=== PATIENT | female | born 1945 | race Caucasian/White ===

== ENCOUNTER 2016-07-01 22:40 | Emergency (ER) | payer MEDICARE, BC ==
[~2016-07-01 22:40] MED LIST: /HCTZ25TA PO; AMLO10TA2 PO; ASPI1TAB PO; ASPI325T PO; ASPI81TA85 PO; CARV25TA PO; COZA100T2 PO; ELIQ5TAB PO; HYZA100T2 PO; LOPR50TA PO; LOSA100T PO; PERCOCET PO; SIMV40TA2 PO; SPIR25TA2 PO; TRAM50TA2 PO; TYLE325T5 PO
[2016-07-01] MEDS ORDERED: MORPHINE 4 MG/ML 1ML SYRINGE As Ordered ONE (23:26)
[2016-07-02 00:08] LABS: BASO # 0.1 K/mm3 (0.0-0.2); EOS # 0.3 K/mm3 (0.0-0.50); EOS % 2.7 % (0.0-3.0); LARGE UNSTAINED CELL # 0.2 K/mm3 (0.0-0.4); LARGE UNSTAINED CELL % 1.2 % (0.0-4.0); LYMPH # 1.7 K/mm3 (1.5-4.5); LYMPH % 12.5 % (24.0-44.0); MEAN CORPUSCULAR HEMOGLOBIN 28.8 pg (27.0-33.0); MEAN CORPUSCULAR HGB CONC 31.2 g/dl (32.0-36.5); MEAN CORPUSCULAR VOLUME 92.3 fl (80.0-96.0); MONO # 0.6 K/mm3 (0.0-0.8); MONO % 4.9 % (0.0-5.0); NEUTROPHILS # 9.4 K/mm3 (1.8-7.7); NEUTROPHILS % 77.6 % (36.0-66.0); PLATELET COUNT, AUTOMATED 325 k/mm3 (150-450); RED CELL DISTRIBUTION WIDTH 14.4 % (11.5-14.5); WHITE BLOOD COUNT 12.1 K/mm3 (4.0-10.0)
[2016-07-02 00:16] LABS: INR 1.17
--- NOTE | 2016-07-02 00:20 | REPUSA ---
CLINICAL HISTORY: Edema. COMMENTS: Real time sonography with duplex doppler of the left lower extremity was performed with attention to the major deep venous structures. Evaluation reveals the left common femoral, superficial femoral and popliteal veins to be completely compressible without intraluminal thrombus. There is normal spontaneous phasic flow and augmentation. The greater saphenous/common femoral vein junction is patent. There is an intramuscular hematoma within the left calf muscles measuring 8.9x4.4x5.9 cm. IMPRESSION: No evidence of DVT in left lower extremity. Intramuscular hematoma of the left calf muscles. Thank you for your kind referral of this patient.
[2016-07-02 00:24] LABS: CALCIUM LEVEL 10.6 MG/DL (8.8-10.2); CREATININE FOR GFR 1.15 MG/DL (0.55-1.02); GLOMERULAR FILTRATION RATE 49.8 (>45); POTASSIUM SERUM 4.3 MEQ/L (3.5-5.1)
--- NOTE | 2016-07-02 01:00 | EDDOCDS ---
Nurse's Notes [facility] Name: Aleyda Cheema Age: 71 yrs Sex: Female : 1945 Arrival Date: 07/01/2016 Time: 22:40 Bed 12 Private MD: Demi Martinez Diagnosis: Edema, unspecified-Hematoma of lower leg Presentation: 07/01 22:49 Presenting complaint: Patient states: "My left leg has swollen to almost twice it's mb9 size and it hurts real bad". pt reports that she first noticed it two days ago. Adult Sepsis Screening: The patient does not have new or worsening altered mentation. Patient's respiratory rate is less than 22. Systolic blood pressure is greater than 100. Patient has a qSOFA score of 0- Negative Sepsis Screen. Suicide/Homicide risk assessment- the patient denies having any suicidal and/or homicidal ideations and does not present with any other emotional, behavioral or mental health complaints. Status: Patient is not a guest services ambassador or dependent. Transition of care: patient was not received from another setting of care. 22:49 Acuity: AROLDO Level 3 mb9 22:49 Method Of Arrival: Walkin/Carried/Asstd mb9 Triage Assessment: 22:53 General: Appears in no apparent distress, Behavior is appropriate for age, cooperative. mb9 Pain: Location: left calf Pain currently is 9 out of 10 on a pain scale. Cardiovascular: pt's left lower extremity appears swollen compared to right. . Historical: - Allergies: No known drug Allergies; - Home Meds: 1. carvedilol 6.25 mg oral tab 1 tab 2 times per day 2. simvastatin 40 mg Oral tab 1 tab once daily 3. spironolactone 25 mg Oral tab 0.5 tab once daily 4. oxybutynin chloride 10 mg Oral tr24 1 tab once daily 5. Eliquis 5 mg oral tab 1 tab 2 times per day 6. losartan 25 mg oral tab 1 tab once daily 7. Dexilant 60 mg oral CpDB 1 cap once daily - PMHx: Atrial Fib; GERD; Hypertension; - PSHx: Cholecystectomy; back surgery x2; trigger finger; Knee Arthroplasty, Left; - Social history: Smoking status: Patient states was never smoker of tobacco. No barriers to communication noted, The patient speaks fluent [place]ican. - Family history: Not pertinent. - : The pt / caregiver states he / she is on anticoagulants: Eliquis Home medication list is obtained from the patient. - Exposure Risk Screening:: None identified. Screenin:22 Screening information is obtained from the patient. Fall risk: No risks identified. kas2 Assistance ADL's: requires no assistance with activities of daily living. Abuse/DV Screen: The patient / caregiver reports he/she is: not in a situation that causes fear, pain or injury. Nutritional screening: No deficits noted. Advance Directives: Currently, there is no health care proxy. There is no active DNR order. There is no living will. There is no Power of Medical Record Librarian. home support is adequate. Assessment: 23:18 General: Appears in no apparent distress, uncomfortable, well nourished, well groomed, kas2 Behavior is appropriate for age, cooperative. Pain: Location: left leg and left calf Pain currently is 9 out of 10 on a pain scale. Pain radiates to left leg and left calf Quality of pain is described as sharp, stabbing, Pain began 2-3 days ago. Neurological: Level of Consciousness is awake, alert, Oriented to person, place, time. Cardiovascular: Capillary refill < 3 seconds Heart tones S1 S2 present Rhythm is atrial fibrillation Chest pain is denied. Respiratory: Airway is patent Respiratory effort is even, unlabored, Respiratory pattern is regular, symmetrical, Breath sounds are clear bilaterally. Derm: Skin is intact, Skin is dry, Skin is pink, warm & dry. Skin temperature is warm. Musculoskeletal: Circulation, motion, and sensation intact Capillary refill < 3 seconds Range of motion limited in left leg and left calf Swelling present in left leg and left calf. Injury Description: No known injury. 23:20 General: Patient gone to [place] via stretcher with tech.. kas2 23:55 General: Patient back from [place] via stretcher with tech. Resettled patient in bed.. kas2 Vital Signs: 22:42 BP 155 / 101; Pulse 93; Resp 18 S; Temp 97.1(O); Pulse Ox 95% on R/A; Weight 92.99 kg dd6 (R); Height 5 ft. 5 in. (165.10 cm) (R); 23:17 BP 154 / 89 (auto/); kas2 23:17 Pulse Ox 93% ; kas2 23:56 BP 133 / 78 (auto/); kas2 23:57 Pulse Ox 94% ; kas2 07/02 00:57 BP 138 / 63; Pulse 75; Resp 18; Temp 98.2; Pulse Ox 99% ; Pain 0/10; kas2 07/01 22:42 Body Mass Index 34.11 (92.99 kg, 165.10 cm) dd6 Vitals: 07/01 22:42 Log In Time: July 01, 2016 at 22:40. dd6 ED Course: 22:41 Patient visited by Cj Sellers PCA. dd6 22:41 Patient moved to Waiting dd6 22:42 Demi Martinez MD is Private Physician. dd6 22:43 Patient moved to Pre RCE dd6 22:50 Triage Initiated mb9 23:07 Zahraa Johnson RN is Primary Nurse. sls1 23:07 Patient moved to 12 sls1 23:16 Abilio Monaco MD is Attending Physician. br1 23:21 Patient visited by Abilio Monaco MD. br1 23:22 Patient visited by Zahraa Johnson RN. kas2 23:22 code number stamper on. Pulse ox on. NIBP on. kas2 23:26 Patient moved to Ultrasound dmg 07/02 00:02 [facility] Payment Agreement was scanned into [employer] (T/A) and attached to record. pm4 00:02 Patient moved to 12 tmb 00:09 Inserted saline lock: 20 gauge in right antecubital area and blood collected. The kas2 patient tolerated the procedure well. No procedures done that require assistance. 00:10 Patient visited by Zahraa Johnson RN. kas2 00:36 Demi Martinez MD is Referral Physician. br1 00:57 Ultrasound LE Unilateral R/O DVT Returned. EDMS 00:59 Patient visited by Zahraa Johnson RN. kas2 00:59 The patient / caregiver is instructed regarding the plan of care and ED course. [facility] Administered Medications: 00:09 Drug: morphine 4 mg [morphine 4 mg/mL intravenous cartridge (1 mL)] Route: IVP; Site: [facility] right antecubital; Order Results: Lab Order: CBC with Diff; SPEC'M 07/01/16 23:57 Test: WHITE BLOOD COUNT; Value: 12.1; Range: 4.0-10.0; Abnormal: Above high normal; Units: K/mm3; Status: F Test: RED BLOOD COUNT; Value: 4.69; Range: 4.00-5.40; Units: M/mm3; Status: F Test: HEMOGLOBIN; Value: 13.5; Range: 12.0-16.0; Units: g/dl; Status: F Test: HEMATOCRIT; Value: 43.3; Range: 36.0-47.0; Units: %; Status: F Test: MEAN CORPUSCULAR VOLUME; Value: 92.3; Range: 80.0-96.0; Units: fl; Status: F Test: MEAN CORPUSCULAR HEMOGLOBIN; Value: 28.8; Range: 27.0-33.0; Units: pg; Status: F Test: MEAN CORPUSCULAR HGB CONC; Value: 31.2; Range: 32.0-36.5; Abnormal: Below low normal; Units: g/dl; Status: F Test: RED CELL DISTRIBUTION WIDTH; Value: 14.4; Range: 11.5-14.5; Units: %; Status: F Test: PLATELET COUNT, AUTOMATED; Value: 325; Range: 150-450; Units: k/mm3; Status: F Test: NEUTROPHILS %; Value: 77.6; Range: 36.0-66.0; Abnormal: Above high normal; Units: %; Status: F Test: LYMPH %; Value: 12.5; Range: 24.0-44.0; Abnormal: Below low normal; Units: %; Status: F Test: MONO %; Value: 4.9; Range: 0.0-5.0; Units: %; Status: F Test: EOS %; Value: 2.7; Range: 0.0-3.0; Units: %; Status: F Test: BASO %; Value: 1.0; Range: 0.0-1.0; Units: %; Status: F Test: LARGE UNSTAINED CELL %; Value: 1.2; Range: 0.0-4.0; Units: %; Status: F Test: NEUTROPHILS #; Value: 9.4; Range: 1.8-7.7; Abnormal: Above high normal; Units: K/mm3; Status: F Test: LYMPH #; Value: 1.7; Range: 1.5-4.5; Units: K/mm3; Status: F Test: MONO #; Value: 0.6; Range: 0.0-0.8; Units: K/mm3; Status: F Test: EOS #; Value: 0.3; Range: 0.0-0.50; Units: K/mm3; Status: F Test: BASO #; Value: 0.1; Range: 0.0-0.2; Units: K/mm3; Status: F Test: LARGE UNSTAINED CELL #; Value: 0.2; Range: 0.0-0.4; Units: K/mm3; Status: F Lab Order: BMP; SPEC'M 07/01/16 23:57 Test: GLUCOSE, FASTING; Value: 106; Range: 80-110; Units: MG/DL; Status: F Test: BLOOD UREA NITROGEN; Value: 33; Range: 7-18; Abnormal: Above high normal; Units: MG/DL; Status: F Test: CREATININE FOR GFR; Value: 1.15; Range: 0.55-1.02; Abnormal: Above high normal; Units: MG/DL; Status: F Test: GLOMERULAR FILTRATION RATE; Value: 49.8; Range: >45; Status: F Test: SODIUM LEVEL; Value: 139; Range: 136-145; Units: MEQ/L; Status: F Test: POTASSIUM SERUM; Value: 4.3; Range: 3.5-5.1; Units: MEQ/L; Status: F Test: CHLORIDE LEVEL; Value: 105; Range: 98-107; Units: MEQ/L; Status: F Test: CARBON DIOXIDE LEVEL; Value: 26; Range: 21-32; Units: MEQ/L; Status: F Test: ANION GAP; Value: 8; Range: 8-16; Units: MEQ/L; Status: F Test: CALCIUM LEVEL; Value: 10.6; Range: 8.8-10.2; Abnormal: Above high normal; Units: MG/DL; Status: F Test Note: ; Units are mL/min/1.73 m2 Chronic Kidney Disease Staging per NKF: Stage I & II GFR >=60 Normal to Mildly Decreased Stage III GFR 30-59 Moderately Decreased Stage IV GFR 15-29 Severely Decreased Stage V GFR <15 Very Little GFR Left ESRD GFR <15 on [place] [place] [place] Lab Order: PT/INR; SPEC'M 07/01/16 23:58 Test: PROTHROMBIN TIME; Value: 15.0; Range: 12.3-14.5; Abnormal: Above high normal; Units: SECONDS; Status: F Test: INR; Value: 1.17; Status: F Test Note: ; THERAPUTIC HUMAN INR VALUES INDICATIONS NORMAL RANGES PROPHYLAXIS/TREATMENT OF: VENOUS THROMBOSIS 2.0-3.0 PULMONARY EMBOLISM 2.0-3.0 PREVENTION OF SYSTEMIC EMBOLISM FROM: TISSUE HEART VALVES 2.0-3.0 ACUTE MYOCARDIAL INFARCTION 2.0-3.0 VALVULAR HEART DISEASE 2.0-3.0 ATRIAL FIBRILLATION 2.0-3.0 MECHANICAL VALVES(HIGH RISK) 2.5-3.5 RECURRENT MYOCARDIAL INFARCTION 2.5-3.5 Lab Order: PTT; SPEC'M 07/01/16 23:58 Test: PARTIAL THROMBOPLASTIN TIME; Value: 31.9; Range: 26.6-37.1; Units: SECONDS; Status: F Radiology Order: Ultrasound LE Unilateral R/O DVT Test: Ultrasound LE Unilateral R/O DVT REASON FOR EXAMINATION: Deformity/Swelling; ; CLINICAL HISTORY: Edema.; COMMENTS:; Real time sonography with duplex doppler of the left lower extremity was performed with attention to; the major deep venous structures.; Evaluation reveals the left common femoral, superficial femoral and popliteal veins to be completely; compressible without intraluminal thrombus. There is normal spontaneous phasic flow and augmentation.; The greater saphenous/common femoral vein junction is patent.; There is an intramuscular hematoma within the left calf muscles measuring 8.9x4.4x5.9 cm.; IMPRESSION:; No evidence of DVT in left lower extremity.; Intramuscular hematoma of the left calf muscles.; Thank you for your kind referral of this patient.; ; Outcome: 00:37 Discharge ordered by Provider. br1 00:59 Discharge Assessment: patient administered narcotics - yes. Pt provided with safe kas2 discharge. The following High Risk Discharge criteria are identified: None. Discharged to home via wheelchair, with significant other. Condition: good Condition: stable Condition: improved. Ultrasound Study completed. Property :Personal belongings accompany Pt. 00:59 Patient left the ED. kas2 Signatures: Dispatcher [employer] EDSadie Mata Brian, MD MD br1 Cj Sellers, [place] PHOTOGRAPHER [place] PHOTOGRAPHER dd6 Stefany Oviedo RN RN sls1 Fernando Montes Michael, RN RN mb9 Zahraa JohnsonRN RN kas2 Stanley King, Reg Reg pm4 [place]
--- NOTE | 2016-07-02 01:00 | EDDOCDS ---
Physician Documentation [facility] Name: Aleyda Cheema Age: 71 yrs Sex: Female : 1945 Arrival Date: 07/01/2016 Time: 22:40 Bed 12 Private MD: Demi Martinez Disposition: 07/02/16 00:37 Discharged to Home/Self Care. Impression: Edema, unspecified - Hematoma of lower leg. - Condition is Stable. - Discharge Instructions: Edema, Hematoma. - Prescriptions for Percocet 5- 325 mg Oral Tablet - take 1 tablet by ORAL route every 6 hours As needed MDD: 4 tabs; 10 tablet. - Medication Reconciliation, Local Pharmacy Hours form. - Follow up: Demi Martinez MD; When: 1 - 2 days; Reason: Recheck today's complaints. - Problem is new. - Symptoms are unchanged. - Notes: You were seen in the ED for swelling of the left low leg. Bloodwork along with Xray showed no acute findings. Ultrasound showed a hematoma in the leg but no blood clots. You may return home. Rest the leg, use compression stockings, and keep the leg elevated. Call your doctor in the morning to arrange recheck of the leg within 1-2 days and to discuss whether or not you will need to hold your Eliquis because of the hematoma. Return to the ED for any worsening pain, swelling, sensation loss in the leg, cold or blue foot or any other concerns. Historical: - Allergies: No known drug Allergies; - Home Meds: 1. carvedilol 6.25 mg oral tab 1 tab 2 times per day 2. simvastatin 40 mg Oral tab 1 tab once daily 3. spironolactone 25 mg Oral tab 0.5 tab once daily 4. oxybutynin chloride 10 mg Oral tr24 1 tab once daily 5. Eliquis 5 mg oral tab 1 tab 2 times per day 6. losartan 25 mg oral tab 1 tab once daily 7. Dexilant 60 mg oral CpDB 1 cap once daily - PMHx: Atrial Fib; GERD; Hypertension; - PSHx: Cholecystectomy; back surgery x2; trigger finger; Knee Arthroplasty, Left; - Social history: Smoking status: Patient states was never smoker of tobacco. No barriers to communication noted, The patient speaks fluent Albanian. - Family history: Not pertinent. - : The pt / caregiver states he / she is on anticoagulants: Eliquis Home medication list is obtained from the patient. - Exposure Risk Screening:: None identified. Vital Signs: 07/01 22:42 BP 155 / 101; Pulse 93; Resp 18 S; Temp 97.1(O); Pulse Ox 95% on R/A; Weight 92.99 kg / dd6 205.01 lbs (R); Height 5 ft. 5 in. (165.10 cm) (R); 23:17 BP 154 / 89 (auto/); kas2 23:17 Pulse Ox 93% ; kas2 23:56 BP 133 / 78 (auto/); kas2 23:57 Pulse Ox 94% ; kas2 07/02 00:57 BP 138 / 63; Pulse 75; Resp 18; Temp 98.2; Pulse Ox 99% ; Pain 0/10; kas2 07/01 22:42 Body Mass Index 34.11 (92.99 kg, 165.10 cm) dd6 MDM: 07/01 23:22 IV Saline Lock ordered. br1 23:22 morphine 4 mg IVP once ordered. br1 23:22 Recheck B/P ordered. br1 23:23 CBC with Diff Ordered. EDMS 23:23 BMP Ordered. EDMS 23:23 PT/INR Ordered. EDMS 23:23 PTT Ordered. EDMS 23:24 Tibia/Fibula Ordered. EDMS 23:24 Ultrasound LE Unilateral R/O DVT Ordered. EDMS 07/02 00:01 Financial registration complete. pm4 00:02 [facility] Payment Agreement was scanned into [employer] and attached to record. pm4 00:21 CBC with Diff Reviewed. br1 00:21 PT/INR Reviewed. br1 00:21 PTT Reviewed. br1 00:28 BMP Reviewed. cc10 Administered Medications: 00:09 Drug: morphine 4 mg [morphine 4 mg/mL intravenous cartridge (1 mL)] Route: IVP; Site: [facility] right antecubital; Signatures: Dispatcher [employer] EDMS Abilio Monaco MD MD br1 Mayito Swain PA-C PAKelly cc10 Ang Dao RN RN mb9 Zahraa Johnson RN RN kas2 Stanley King, Reg Reg pm4 The chart was reviewed and I authenticate all verbal orders and agree with the evaluation and treatment provided.Attachments: 00:02 [facility] Payment Agreement pm4 MTDD
--- NOTE | 2016-07-02 08:29 | REP ---
LEFT TIBIA/FIBULA SERIES: Three views. HISTORY: Trauma. FINDINGS: There is osteoarthritic narrowing and spur formation at the ankle and knee joints. 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 No fracture or subluxation is seen. IMPRESSION: No fracture noted. Signed by Allan Macias MD 07/02/2016 09:40 A
--- NOTE | 2016-07-04 02:00 | EDDOCDS ---
Nurse's Notes [facility] Name: Aleyda Cheema Age: 71 yrs Sex: Female : 1945 Arrival Date: 07/01/2016 Time: 22:40 Bed 12 Private MD: Demi Martinez Diagnosis: Edema, unspecified-Hematoma of lower leg Presentation: 07/01 22:49 Presenting complaint: Patient states: "My left leg has swollen to almost twice it's mb9 size and it hurts real bad". pt reports that she first noticed it two days ago. Adult Sepsis Screening: The patient does not have new or worsening altered mentation. Patient's respiratory rate is less than 22. Systolic blood pressure is greater than 100. Patient has a qSOFA score of 0- Negative Sepsis Screen. Suicide/Homicide risk assessment- the patient denies having any suicidal and/or homicidal ideations and does not present with any other emotional, behavioral or mental health complaints. Status: Patient is not a children's service supervisor or dependent. Transition of care: patient was not received from another setting of care. 22:49 Acuity: AROLDO Level 3 mb9 22:49 Method Of Arrival: Walkin/Carried/Asstd mb9 Triage Assessment: 22:53 General: Appears in no apparent distress, Behavior is appropriate for age, cooperative. mb9 Pain: Location: left calf Pain currently is 9 out of 10 on a pain scale. Cardiovascular: pt's left lower extremity appears swollen compared to right. . Historical: - Allergies: No known drug Allergies; - Home Meds: 1. carvedilol 6.25 mg oral tab 1 tab 2 times per day 2. simvastatin 40 mg Oral tab 1 tab once daily 3. spironolactone 25 mg Oral tab 0.5 tab once daily 4. oxybutynin chloride 10 mg Oral tr24 1 tab once daily 5. Eliquis 5 mg oral tab 1 tab 2 times per day 6. losartan 25 mg oral tab 1 tab once daily 7. Dexilant 60 mg oral CpDB 1 cap once daily - PMHx: Atrial Fib; GERD; Hypertension; - PSHx: Cholecystectomy; back surgery x2; trigger finger; Knee Arthroplasty, Left; - Social history: Smoking status: Patient states was never smoker of tobacco. No barriers to communication noted, The patient speaks fluent Marshallese. - Family history: Not pertinent. - : The pt / caregiver states he / she is on anticoagulants: Eliquis Home medication list is obtained from the patient. - Exposure Risk Screening:: None identified. Screenin:22 Screening information is obtained from the patient. Fall risk: No risks identified. kas2 Assistance ADL's: requires no assistance with activities of daily living. Abuse/DV Screen: The patient / caregiver reports he/she is: not in a situation that causes fear, pain or injury. Nutritional screening: No deficits noted. Advance Directives: Currently, there is no health care proxy. There is no active DNR order. There is no living will. There is no Power of Biomedical Equipment Specialist. home support is adequate. Assessment: 23:18 General: Appears in no apparent distress, uncomfortable, well nourished, well groomed, kas2 Behavior is appropriate for age, cooperative. Pain: Location: left leg and left calf Pain currently is 9 out of 10 on a pain scale. Pain radiates to left leg and left calf Quality of pain is described as sharp, stabbing, Pain began 2-3 days ago. Neurological: Level of Consciousness is awake, alert, Oriented to person, place, time. Cardiovascular: Capillary refill < 3 seconds Heart tones S1 S2 present Rhythm is atrial fibrillation Chest pain is denied. Respiratory: Airway is patent Respiratory effort is even, unlabored, Respiratory pattern is regular, symmetrical, Breath sounds are clear bilaterally. Derm: Skin is intact, Skin is dry, Skin is pink, warm & dry. Skin temperature is warm. Musculoskeletal: Circulation, motion, and sensation intact Capillary refill < 3 seconds Range of motion limited in left leg and left calf Swelling present in left leg and left calf. Injury Description: No known injury. 23:20 General: Patient gone to [place] via stretcher with tech.. kas2 23:55 General: Patient back from [place] via stretcher with tech. Resettled patient in bed.. kas2 Vital Signs: 22:42 BP 155 / 101; Pulse 93; Resp 18 S; Temp 97.1(O); Pulse Ox 95% on R/A; Weight 92.99 kg dd6 (R); Height 5 ft. 5 in. (165.10 cm) (R); 23:17 BP 154 / 89 (auto/); kas2 23:17 Pulse Ox 93% ; kas2 23:56 BP 133 / 78 (auto/); kas2 23:57 Pulse Ox 94% ; kas2 07/02 00:57 BP 138 / 63; Pulse 75; Resp 18; Temp 98.2; Pulse Ox 99% ; Pain 0/10; kas2 07/01 22:42 Body Mass Index 34.11 (92.99 kg, 165.10 cm) dd6 Vitals: 07/01 22:42 Log In Time: July 01, 2016 at 22:40. dd6 ED Course: 22:41 Patient visited by Cj Sellers PCA. dd6 22:41 Patient moved to Waiting dd6 22:42 Demi Martinez MD is Private Physician. dd6 22:43 Patient moved to Pre RCE dd6 22:50 Triage Initiated mb9 23:07 Zahraa JohnsonRN is Primary Nurse. sls1 23:07 Patient moved to 12 sls1 23:16 Abilio Monaco MD is Attending Physician. br1 23:21 Patient visited by Abilio Monaco MD. br1 23:22 Patient visited by Zahraa Johnson RN. kas2 23:22 monitor technician on. Pulse ox on. NIBP on. kas2 23:26 Patient moved to Ultrasound dmg 07/02 00:02 [facility] Payment Agreement was scanned into [employer] and attached to record. pm4 00:02 Patient moved to 12 tmb 00:09 Inserted saline lock: 20 gauge in right antecubital area and blood collected. The kas2 patient tolerated the procedure well. No procedures done that require assistance. 00:10 Patient visited by Zahraa Johnson RN. kas2 00:36 Demi Martinez MD is Referral Physician. br1 00:57 Ultrasound LE Unilateral R/O DVT Returned. EDMS 00:59 Patient visited by Zahraa Johnson RN. kas2 00:59 The patient / caregiver is instructed regarding the plan of care and ED course. kas2 08:43 Tibia/Fibula Returned. EDMS 10:40 T-Sheet-- Draft Copy was scanned into [employer] and attached to record. gb 10:40 Radiology Report was scanned into [employer] and attached to record. gb Administered Medications: 00:09 Drug: morphine 4 mg [morphine 4 mg/mL intravenous cartridge (1 mL)] Route: IVP; Site: [facility] right antecubital; Order Results: Lab Order: CBC with Diff; SPEC'M 07/01/16 23:57 Test: WHITE BLOOD COUNT; Value: 12.1; Range: 4.0-10.0; Abnormal: Above high normal; Units: K/mm3; Status: F Test: RED BLOOD COUNT; Value: 4.69; Range: 4.00-5.40; Units: M/mm3; Status: F Test: HEMOGLOBIN; Value: 13.5; Range: 12.0-16.0; Units: g/dl; Status: F Test: HEMATOCRIT; Value: 43.3; Range: 36.0-47.0; Units: %; Status: F Test: MEAN CORPUSCULAR VOLUME; Value: 92.3; Range: 80.0-96.0; Units: fl; Status: F Test: MEAN CORPUSCULAR HEMOGLOBIN; Value: 28.8; Range: 27.0-33.0; Units: pg; Status: F Test: MEAN CORPUSCULAR HGB CONC; Value: 31.2; Range: 32.0-36.5; Abnormal: Below low normal; Units: g/dl; Status: F Test: RED CELL DISTRIBUTION WIDTH; Value: 14.4; Range: 11.5-14.5; Units: %; Status: F Test: PLATELET COUNT, AUTOMATED; Value: 325; Range: 150-450; Units: k/mm3; Status: F Test: NEUTROPHILS %; Value: 77.6; Range: 36.0-66.0; Abnormal: Above high normal; Units: %; Status: F Test: LYMPH %; Value: 12.5; Range: 24.0-44.0; Abnormal: Below low normal; Units: %; Status: F Test: MONO %; Value: 4.9; Range: 0.0-5.0; Units: %; Status: F Test: EOS %; Value: 2.7; Range: 0.0-3.0; Units: %; Status: F Test: BASO %; Value: 1.0; Range: 0.0-1.0; Units: %; Status: F Test: LARGE UNSTAINED CELL %; Value: 1.2; Range: 0.0-4.0; Units: %; Status: F Test: NEUTROPHILS #; Value: 9.4; Range: 1.8-7.7; Abnormal: Above high normal; Units: K/mm3; Status: F Test: LYMPH #; Value: 1.7; Range: 1.5-4.5; Units: K/mm3; Status: F Test: MONO #; Value: 0.6; Range: 0.0-0.8; Units: K/mm3; Status: F Test: EOS #; Value: 0.3; Range: 0.0-0.50; Units: K/mm3; Status: F Test: BASO #; Value: 0.1; Range: 0.0-0.2; Units: K/mm3; Status: F Test: LARGE UNSTAINED CELL #; Value: 0.2; Range: 0.0-0.4; Units: K/mm3; Status: F Lab Order: [facility]; SPEC'M 07/01/16 23:57 Test: GLUCOSE, FASTING; Value: 106; Range: 80-110; Units: MG/DL; Status: F Test: BLOOD UREA NITROGEN; Value: 33; Range: 7-18; Abnormal: Above high normal; Units: MG/DL; Status: F Test: CREATININE FOR GFR; Value: 1.15; Range: 0.55-1.02; Abnormal: Above high normal; Units: MG/DL; Status: F Test: GLOMERULAR FILTRATION RATE; Value: 49.8; Range: >45; Status: F Test: SODIUM LEVEL; Value: 139; Range: 136-145; Units: MEQ/L; Status: F Test: POTASSIUM SERUM; Value: 4.3; Range: 3.5-5.1; Units: MEQ/L; Status: F Test: CHLORIDE LEVEL; Value: 105; Range: 98-107; Units: MEQ/L; Status: F Test: CARBON DIOXIDE LEVEL; Value: 26; Range: 21-32; Units: MEQ/L; Status: F Test: ANION GAP; Value: 8; Range: 8-16; Units: MEQ/L; Status: F Test: CALCIUM LEVEL; Value: 10.6; Range: 8.8-10.2; Abnormal: Above high normal; Units: MG/DL; Status: F Test Note: ; Units are mL/min/1.73 m2 Chronic Kidney Disease Staging per NKF: Stage I & II GFR >=60 Normal to Mildly Decreased Stage III GFR 30-59 Moderately Decreased Stage IV GFR 15-29 Severely Decreased Stage V GFR <15 Very Little GFR Left ESRD GFR <15 on CERAMIC TILE INSTALLATION HELPER Lab Order: PT/INR; SPEC'M 07/01/16 23:58 Test: PROTHROMBIN TIME; Value: 15.0; Range: 12.3-14.5; Abnormal: Above high normal; Units: SECONDS; Status: F Test: INR; Value: 1.17; Status: F Test Note: ; THERAPUTIC HUMAN INR VALUES INDICATIONS NORMAL RANGES PROPHYLAXIS/TREATMENT OF: VENOUS THROMBOSIS 2.0-3.0 PULMONARY EMBOLISM 2.0-3.0 PREVENTION OF SYSTEMIC EMBOLISM FROM: TISSUE HEART VALVES 2.0-3.0 ACUTE MYOCARDIAL INFARCTION 2.0-3.0 VALVULAR HEART DISEASE 2.0-3.0 ATRIAL FIBRILLATION 2.0-3.0 MECHANICAL VALVES(HIGH RISK) 2.5-3.5 RECURRENT MYOCARDIAL INFARCTION 2.5-3.5 Lab Order: PTT; SPEC'M 07/01/16 23:58 Test: PARTIAL THROMBOPLASTIN TIME; Value: 31.9; Range: 26.6-37.1; Units: SECONDS; Status: F Radiology Order: Tibia/Fibula Test: Tibia/Fibula REASON FOR EXAMINATION: Trauma; LEFT TIBIA/FIBULA SERIES: Three views.; ; HISTORY: Trauma.; ; FINDINGS: There is osteoarthritic narrowing and spur formation at the ankle and; knee joints. 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 No fracture or subluxation is seen.; ; IMPRESSION: No fracture noted.; ; ; Signed by; Allan Macias MD 07/02/2016 09:40 A; Radiology Order: Ultrasound LE Unilateral R/O DVT Test: Ultrasound LE Unilateral R/O DVT REASON FOR EXAMINATION: Deformity/Swelling; ; CLINICAL HISTORY: Edema.; COMMENTS:; Real time sonography with duplex doppler of the left lower extremity was performed with attention to; the major deep venous structures.; Evaluation reveals the left common femoral, superficial femoral and popliteal veins to be completely; compressible without intraluminal thrombus. There is normal spontaneous phasic flow and augmentation.; The greater saphenous/common femoral vein junction is patent.; There is an intramuscular hematoma within the left calf muscles measuring 8.9x4.4x5.9 cm.; IMPRESSION:; No evidence of DVT in left lower extremity.; Intramuscular hematoma of the left calf muscles.; Thank you for your kind referral of this patient.; ; Outcome: 00:37 Discharge ordered by Provider. br1 00:59 Discharge Assessment: patient administered narcotics - yes. Pt provided with safe kas2 discharge. The following High Risk Discharge criteria are identified: None. Discharged to home via wheelchair, with significant other. Condition: good Condition: stable Condition: improved. Ultrasound Study completed. Property :Personal belongings accompany Pt. 00:59 Patient left the ED. kas2 Signatures: Dispatcher [employer] EDMS Sadie Elder Kizzy Gunn, Reg Reg gb Abilio Monaco MD MD br1 Cj Sellers, SUPERVISOR PLASMA SUPERVISOR PLASMA dd6 Stefany Oviedo RN RN sls1 Fernando Montes Michael,RN RN [id number] Zahraa Johnson RN RN kas2 Stanley King, Reg Reg pm4 [facility]
--- NOTE | 2016-07-04 02:00 | EDDOCDS ---
Physician Documentation [facility] Name: Aleyda Cheema Age: 71 yrs Sex: Female : 1945 Arrival Date: 07/01/2016 Time: 22:40 Bed 12 Private MD: Demi Martinez Disposition: 07/02/16 00:37 Discharged to Home/Self Care. Impression: Edema, unspecified - Hematoma of lower leg. - Condition is Stable. - Discharge Instructions: Edema, Hematoma. - Prescriptions for Percocet 5- 325 mg Oral Tablet - take 1 tablet by ORAL route every 6 hours As needed MDD: 4 tabs; 10 tablet. - Medication Reconciliation, Local Pharmacy Hours form. - Follow up: Demi Martinez MD; When: 1 - 2 days; Reason: Recheck today's complaints. - Problem is new. - Symptoms are unchanged. - Notes: You were seen in the ED for swelling of the left low leg. Bloodwork along with Xray showed no acute findings. Ultrasound showed a hematoma in the leg but no blood clots. You may return home. Rest the leg, use compression stockings, and keep the leg elevated. Call your doctor in the morning to arrange recheck of the leg within 1-2 days and to discuss whether or not you will need to hold your Eliquis because of the hematoma. Return to the ED for any worsening pain, swelling, sensation loss in the leg, cold or blue foot or any other concerns. Historical: - Allergies: No known drug Allergies; - Home Meds: 1. carvedilol 6.25 mg oral tab 1 tab 2 times per day 2. simvastatin 40 mg Oral tab 1 tab once daily 3. spironolactone 25 mg Oral tab 0.5 tab once daily 4. oxybutynin chloride 10 mg Oral tr24 1 tab once daily 5. Eliquis 5 mg oral tab 1 tab 2 times per day 6. losartan 25 mg oral tab 1 tab once daily 7. Dexilant 60 mg oral CpDB 1 cap once daily - PMHx: Atrial Fib; GERD; Hypertension; - PSHx: Cholecystectomy; back surgery x2; trigger finger; Knee Arthroplasty, Left; - Social history: Smoking status: Patient states was never smoker of tobacco. No barriers to communication noted, The patient speaks fluent Mohawk. - Family history: Not pertinent. - : The pt / caregiver states he / she is on anticoagulants: Eliquis Home medication list is obtained from the patient. - Exposure Risk Screening:: None identified. Vital Signs: 07/01 22:42 BP 155 / 101; Pulse 93; Resp 18 S; Temp 97.1(O); Pulse Ox 95% on R/A; Weight 92.99 kg / dd6 205.01 lbs (R); Height 5 ft. 5 in. (165.10 cm) (R); 23:17 BP 154 / 89 (auto/); kas2 23:17 Pulse Ox 93% ; kas2 23:56 BP 133 / 78 (auto/); kas2 23:57 Pulse Ox 94% ; kas2 07/02 00:57 BP 138 / 63; Pulse 75; Resp 18; Temp 98.2; Pulse Ox 99% ; Pain 0/10; kas2 07/01 22:42 Body Mass Index 34.11 (92.99 kg, 165.10 cm) dd6 MDM: 07/01 23:22 IV Saline Lock ordered. br1 23:22 morphine 4 mg IVP once ordered. br1 23:22 Recheck B/P ordered. br1 23:23 CBC with Diff Ordered. EDMS 23:23 BMP Ordered. EDMS 23:23 PT/INR Ordered. EDMS 23:23 PTT Ordered. EDMS 23:24 Tibia/Fibula Ordered. EDMS 23:24 Ultrasound LE Unilateral R/O DVT Ordered. EDMS 07/02 00:01 Financial registration complete. pm4 00:02 [facility] Payment Agreement was scanned into [employer] and attached to record. pm4 00:21 CBC with Diff Reviewed. br1 00:21 PT/INR Reviewed. br1 00:21 PTT Reviewed. br1 00:28 BMP Reviewed. cc10 10:40 T-Sheet-- Draft Copy was scanned into [employer] and attached to record. gb 10:40 Radiology Report was scanned into [employer] and attached to record. gb Administered Medications: 00:09 Drug: morphine 4 mg [morphine 4 mg/mL intravenous cartridge (1 mL)] Route: IVP; Site: [facility] right antecubital; Signatures: Dispatcher [employer] EDMS Kizzy Guzman, Reg Reg gb Abilio Monaco MD MD br1 Mayito Swain PA-C PA-C cc10 Ang Dao,RN RN mb9 Zahraa JohnsonRN RN kas2 Stanley King, Reg Reg pm4 The chart was reviewed and I authenticate all verbal orders and agree with the evaluation and treatment provided.Attachments: 00:02 [facility] Payment Agreement pm4 10:40 T-Sheet-- Draft Copy gb Chart Complete MTDD
--- NOTE | 2016-07-04 02:00 | EDDOCDS ---
Physician Documentation [facility] Name: Aleyda Cheema Age: 71 yrs Sex: Female : 1945 Arrival Date: 07/01/2016 Time: 22:40 Bed 12 Private MD: Demi Martinez Disposition: 07/02/16 00:37 Discharged to Home/Self Care. Impression: Edema, unspecified - Hematoma of lower leg. - Condition is Stable. - Discharge Instructions: Edema, Hematoma. - Prescriptions for Percocet 5- 325 mg Oral Tablet - take 1 tablet by ORAL route every 6 hours As needed MDD: 4 tabs; 10 tablet. - Medication Reconciliation, Local Pharmacy Hours form. - Follow up: Demi Martinez MD; When: 1 - 2 days; Reason: Recheck today's complaints. - Problem is new. - Symptoms are unchanged. - Notes: You were seen in the ED for swelling of the left low leg. Bloodwork along with Xray showed no acute findings. Ultrasound showed a hematoma in the leg but no blood clots. You may return home. Rest the leg, use compression stockings, and keep the leg elevated. Call your doctor in the morning to arrange recheck of the leg within 1-2 days and to discuss whether or not you will need to hold your Eliquis because of the hematoma. Return to the ED for any worsening pain, swelling, sensation loss in the leg, cold or blue foot or any other concerns. Historical: - Allergies: No known drug Allergies; - Home Meds: 1. carvedilol 6.25 mg oral tab 1 tab 2 times per day 2. simvastatin 40 mg Oral tab 1 tab once daily 3. spironolactone 25 mg Oral tab 0.5 tab once daily 4. oxybutynin chloride 10 mg Oral tr24 1 tab once daily 5. Eliquis 5 mg oral tab 1 tab 2 times per day 6. losartan 25 mg oral tab 1 tab once daily 7. Dexilant 60 mg oral CpDB 1 cap once daily - PMHx: Atrial Fib; GERD; Hypertension; - PSHx: Cholecystectomy; back surgery x2; trigger finger; Knee Arthroplasty, Left; - Social history: Smoking status: Patient states was never smoker of tobacco. No barriers to communication noted, The patient speaks fluent Thai. - Family history: Not pertinent. - : The pt / caregiver states he / she is on anticoagulants: Eliquis Home medication list is obtained from the patient. - Exposure Risk Screening:: None identified. Vital Signs: 07/01 22:42 BP 155 / 101; Pulse 93; Resp 18 S; Temp 97.1(O); Pulse Ox 95% on R/A; Weight 92.99 kg / dd6 205.01 lbs (R); Height 5 ft. 5 in. (165.10 cm) (R); 23:17 BP 154 / 89 (auto/); kas2 23:17 Pulse Ox 93% ; kas2 23:56 BP 133 / 78 (auto/); kas2 23:57 Pulse Ox 94% ; kas2 07/02 00:57 BP 138 / 63; Pulse 75; Resp 18; Temp 98.2; Pulse Ox 99% ; Pain 0/10; kas2 07/01 22:42 Body Mass Index 34.11 (92.99 kg, 165.10 cm) dd6 MDM: 07/01 23:22 IV Saline Lock ordered. br1 23:22 morphine 4 mg IVP once ordered. br1 23:22 Recheck B/P ordered. br1 23:23 CBC with Diff Ordered. EDMS 23:23 BMP Ordered. EDMS 23:23 PT/INR Ordered. EDMS 23:23 PTT Ordered. EDMS 23:24 Tibia/Fibula Ordered. EDMS 23:24 Ultrasound LE Unilateral R/O DVT Ordered. EDMS 07/02 00:01 Financial registration complete. pm4 00:02 [facility] Payment Agreement was scanned into [employer] and attached to record. pm4 00:21 CBC with Diff Reviewed. br1 00:21 PT/INR Reviewed. br1 00:21 PTT Reviewed. br1 00:28 BMP Reviewed. cc10 10:40 T-Sheet-- Draft Copy was scanned into [employer] and attached to record. gb 10:40 Radiology Report was scanned into [employer] and attached to record. gb Administered Medications: 00:09 Drug: morphine 4 mg [morphine 4 mg/mL intravenous cartridge (1 mL)] Route: IVP; Site: [facility] right antecubital; Signatures: Dispatcher [employer] EDMS Kizzy Guzman, Reg Reg gb Abilio Monaco MD MD br1 Mayito Swain PA-C PA-C cc10 Ang Dao,RN RN mb9 Zahraa JohnsonRN RN kas2 Stanley King, Reg Reg pm4 The chart was reviewed and I authenticate all verbal orders and agree with the evaluation and treatment provided.Attachments: 00:02 [facility] Payment Agreement pm4 10:40 T-Sheet-- Draft Copy gb Chart Complete MTDD
== END 2016-07-02 00:59 | disposition home or self-care (01) ==
LOC: M ED 22:40
DX: R60.9 Edema, unspecified (principal); I48.91 Unspecified atrial fibrillation; K21.9 Gastro-esophageal reflux disease without esophagitis; I10 Essential (primary) hypertension; Z79.01 Long term (current) use of anticoagulants; Z79.899 Other long term (current) drug therapy

== ENCOUNTER → 2016-12-16 | Outpatient (CLI) | payer MEDICARE, BC ==
[~2016-12-16] MED LIST changes: +LOSA100T8 PO
[2016-12-16 14:22] LABS: MEAN CORPUSCULAR HEMOGLOBIN 30.1 pg (27.0-33.0); MEAN CORPUSCULAR HGB CONC 33.3 g/dl (32.0-36.5); MEAN CORPUSCULAR VOLUME 90.4 fl (80.0-96.0); RED CELL DISTRIBUTION WIDTH 14.2 % (11.5-14.5); WHITE BLOOD COUNT 7.2 K/mm3 (4.0-10.0)
[2016-12-16 14:25] LABS: CREATININE FOR GFR 0.99 MG/DL (0.55-1.02); GLOMERULAR FILTRATION RATE 59.2 (>45); PHOSPHORUS LEVEL 3.2 MG/DL (2.5-4.9); POTASSIUM SERUM 4.2 MEQ/L (3.5-5.1)
== END ==
LOC: M SMT 10:20
PROVIDERS: ATTEND Physician Assistant
DX: I48.0 Paroxysmal atrial fibrillation (principal); I11.9 Hypertensive heart disease without heart failure; E78.2 Mixed hyperlipidemia; Z11.59 Encounter for screening for other viral diseases

== ENCOUNTER → 2016-12-16 | Outpatient (CLI) | payer MEDICARE, BC ==
[2016-12-16 14:36] LABS: CHOLESTEROL LEVEL 152 MG/DL (<200); TRIGLYCERIDES LEVEL 87 MG/DL (<150)
== END ==
LOC: M SMT 10:22
PROVIDERS: ATTEND Family Medicine
DX: E78.2 Mixed hyperlipidemia (principal); Z11.59 Encounter for screening for other viral diseases

== ENCOUNTER → 2017-04-21 | Outpatient (CLI) | payer MEDICARE, BC ==
[2017-04-21 13:14] LABS: MEAN CORPUSCULAR HEMOGLOBIN 29.2 pg (27.0-33.0); MEAN CORPUSCULAR HGB CONC 32.2 g/dl (32.0-36.5); MEAN CORPUSCULAR VOLUME 90.6 fl (80.0-96.0); PLATELET COUNT, AUTOMATED 295 10^3/uL (150-450); RED CELL DISTRIBUTION WIDTH 13.9 % (11.5-14.5); WHITE BLOOD COUNT 7.3 10^3/uL (4.0-10.0)
[2017-04-21 13:23] LABS: CALCIUM LEVEL 11.4 MG/DL (8.8-10.2); CREATININE FOR GFR 0.99 MG/DL (0.55-1.02); GLOMERULAR FILTRATION RATE 59.2 (>45); MAGNESIUM LEVEL 2.1 MG/DL (1.8-2.4); PHOSPHORUS LEVEL 3.5 MG/DL (2.5-4.9); POTASSIUM SERUM 5.1 MEQ/L (3.5-5.1)
== END ==
LOC: M SMT 10:08
PROVIDERS: ATTEND Physician Assistant
DX: I48.0 Paroxysmal atrial fibrillation (principal); I11.9 Hypertensive heart disease without heart failure

== ENCOUNTER → 2017-09-24 | Outpatient (CLI) | payer MEDICARE, BC ==
[2017-09-24 10:51] LABS: BASO # 0.1 10^3/uL (0.0-0.2); BASO % 0.7 % (0.0-1.0); EOS # 0.3 10^3/uL (0.0-0.50); EOS % 3.6 % (0.0-3.0); HEMATOCRIT 43.6 % (36.0-47.0); HEMOGLOBIN 14.3 g/dl (12.0-15.5); IMMATURE GRANULOCYTE % 0.3 % (0-3.0); LYMPH # 1.6 10^3/uL (1.5-4.5); LYMPH % 21.6 % (24.0-44.0); MEAN CORPUSCULAR HEMOGLOBIN 29.1 pg (27.0-33.0); MEAN CORPUSCULAR HGB CONC 32.8 g/dl (32.0-36.5); MEAN CORPUSCULAR VOLUME 88.8 fl (80.0-96.0); MONO # 0.5 10^3/uL (0.0-0.8); NEUTROPHILS % 67.8 % (36.0-66.0); PLATELET COUNT, AUTOMATED 317 10^3/uL (150-450); RED BLOOD COUNT 4.91 10^6/uL (4.00-5.40); RED CELL DISTRIBUTION WIDTH 14.5 % (11.5-14.5); WHITE BLOOD COUNT 7.4 10^3/uL (4.0-10.0)
[2017-09-24 10:55] LABS: ALBUMIN 3.8 GM/DL (3.2-5.2); ALBUMIN/GLOBULIN RATIO 1.12 (1.00-1.93); ALKALINE PHOSPHATASE 80 U/L (45-117); ALT/SGPT 22 U/L (12-78); ANION GAP 4 MEQ/L (8-16); AST/SGOT 13 U/L (7-37); BILIRUBIN,TOTAL 0.8 MG/DL (0.2-1.0); BLOOD UREA NITROGEN 22 MG/DL (7-18); CARBON DIOXIDE LEVEL 28 MEQ/L (21-32); CHLORIDE LEVEL 109 MEQ/L (98-107); CHOLESTEROL LEVEL 126 MG/DL (<200); CREATININE FOR GFR 0.98 MG/DL (0.55-1.30); GLOMERULAR FILTRATION RATE 59.7 (>39); GLUCOSE, FASTING 98 MG/DL (70-100); HDL CHOLESTEROL 40 MG/DL (>40); LDL CHOLESTEROL 68.6 MG/DL (<100); NON-HDL-C 86 MG/DL; POTASSIUM SERUM 4.8 MEQ/L (3.5-5.1); SODIUM LEVEL 141 MEQ/L (136-145); TOTAL PROTEIN 7.2 GM/DL (6.4-8.2); TRIGLYCERIDES LEVEL 87 MG/DL (<150)
== END ==
LOC: M SMT 08:43
DX: I10 Essential (primary) hypertension (principal)
CPT/HCPCS: 80053

== ENCOUNTER → 2018-04-21 | Outpatient (CLI) | payer MEDICARE, BC ==
[2018-04-21 13:34] LABS: ALBUMIN 3.9 GM/DL (3.2-5.2); ALBUMIN/GLOBULIN RATIO 1.18 (1.00-1.93); ALKALINE PHOSPHATASE 89 U/L (45-117); ALT/SGPT 26 U/L (12-78); ANION GAP 6 MEQ/L (8-16); AST/SGOT 17 U/L (7-37); BASO # 0.1 10^3/uL (0.0-0.2); BASO % 0.6 % (0.0-1.0); BLOOD UREA NITROGEN 19 MG/DL (7-18); CALCIUM LEVEL 10.5 MG/DL (8.8-10.2); CARBON DIOXIDE LEVEL 29 MEQ/L (21-32); CHLORIDE LEVEL 103 MEQ/L (98-107); CHOLESTEROL LEVEL 151 MG/DL (<200); CHOLESTEROL RISK RATIO 3.511 (<5); CREATININE FOR GFR 1.05 MG/DL (0.55-1.30); EOS # 0.2 10^3/uL (0.0-0.50); EOS % 2.4 % (0.0-3.0); GLOMERULAR FILTRATION RATE 55.2 (>39); GLUCOSE, FASTING 110 MG/DL (70-100); HDL CHOLESTEROL 43 MG/DL (>40); HEMATOCRIT 47.1 % (36.0-47.0); HEMOGLOBIN 15.4 g/dl (12.0-15.5); IMMATURE GRANULOCYTE % 0.4 % (0-3.0); LDL CHOLESTEROL 84 MG/DL (<100); LYMPH # 1.5 10^3/uL (1.5-4.5); LYMPH % 17.6 % (24.0-44.0); MEAN CORPUSCULAR HEMOGLOBIN 29.5 pg (27.0-33.0); MEAN CORPUSCULAR HGB CONC 32.7 g/dl (32.0-36.5); MEAN CORPUSCULAR VOLUME 90.2 fl (80.0-96.0); MONO # 0.6 10^3/uL (0.0-0.8); MONO % 6.6 % (0.0-5.0); NEUTROPHILS % 72.4 % (36.0-66.0); NON-HDL-C 108 MG/DL; PLATELET COUNT, AUTOMATED 272 10^3/uL (150-450); POTASSIUM SERUM 4.5 MEQ/L (3.5-5.1); RED BLOOD COUNT 5.22 10^6/uL (4.00-5.40); RED CELL DISTRIBUTION WIDTH 14.3 % (11.5-14.5); SODIUM LEVEL 138 MEQ/L (136-145); TOTAL PROTEIN 7.2 GM/DL (6.4-8.2); TRIGLYCERIDES LEVEL 120 MG/DL (<150); WHITE BLOOD COUNT 8.3 10^3/uL (4.0-10.0)
== END ==
LOC: M SMT 09:22
DX: I10 Essential (primary) hypertension (principal)
CPT/HCPCS: 80053

== ENCOUNTER → 2018-10-11 | Outpatient (CLI) | payer MEDICARE, BC ==
[~2018-10-11] MED LIST changes: -/HCTZ25TA PO; +HYDR-3644 PO; +SPIR-10 PO; -SPIR25TA2 PO
[2018-10-11 11:03] LABS: CALCIUM LEVEL 10.8 MG/DL (8.8-10.2); CREATININE FOR GFR 1.13 MG/DL (0.55-1.30); GLOMERULAR FILTRATION RATE 50.5 (>39); POTASSIUM SERUM 4.6 MEQ/L (3.5-5.1)
[2018-10-11 11:23] LABS: HEMOGLOBIN A1c 5.5 %
== END ==
LOC: M SMT 09:14
PROVIDERS: ATTEND Physician Assistant
DX: I10 Essential (primary) hypertension (principal); R73.01 Impaired fasting glucose

== ENCOUNTER 2019-03-01 20:11 | Emergency (ER) | payer MEDICARE, BC ==
[~2019-03-01] VITALS: Ht 165.1 cm; Wt 106.8 kg
[2019-03-01 20:12] VITALS: BP 143/96
[2019-03-01] MEDS ORDERED: LOSA25TA14 (20:19)
[2019-03-01] MEDS ORDERED: OXYB10TA2 (20:19)
[2019-03-01 21:06] LABS: BASO # 0.1 10^3/uL (0.0-0.2); BASO % 0.4 % (0.0-1.0); EOS # 0.2 10^3/uL (0.0-0.5); EOS % 1.2 % (0.0-3.0); HEMATOCRIT 46.9 % (36.0-47.0); HEMOGLOBIN 15.4 g/dl (12.0-15.5); LYMPH # 1.6 10^3/uL (1.5-5.0); LYMPH % 11.6 % (24.0-44.0); MEAN CORPUSCULAR HEMOGLOBIN 30.1 pg (27.0-33.0); MEAN CORPUSCULAR HGB CONC 32.8 g/dl (32.0-36.5); MEAN CORPUSCULAR VOLUME 91.6 fl (80.0-96.0); MONO # 1.1 10^3/uL (0.0-0.8); MONO % 7.6 % (0.0-5.0); NEUTROPHILS # 10.9 10^3/uL (1.5-8.5); NEUTROPHILS % 78.7 % (36.0-66.0); PLATELET COUNT, AUTOMATED 283 10^3/uL (150-450); RED BLOOD COUNT 5.12 10^6/uL (4.00-5.40); WHITE BLOOD COUNT 13.9 10^3/uL (4.0-10.0)
[2019-03-01 21:31] LABS: ALBUMIN 3.8 GM/DL (3.2-5.2); BILIRUBIN,DIRECT 0.3 MG/DL (0.0-0.2); BILIRUBIN,TOTAL 1.3 MG/DL (0.2-1.0); CALCIUM LEVEL 10.5 MG/DL (8.8-10.2); CREATININE FOR GFR 1.12 MG/DL (0.55-1.30); GLOMERULAR FILTRATION RATE 51.1 (>39); POTASSIUM SERUM 4.3 MEQ/L (3.5-5.1); TOTAL PROTEIN 7.2 GM/DL (6.4-8.2)
[2019-03-01] MEDS: GASTROGRAFIN SOLUTION 30ML PO SCH ×2 (22:50→23:20)
[2019-03-02] MEDS ORDERED: ISOVUE-370 76% 100ML VIAL (Q9967) As Ordered ONE (00:30)
--- NOTE | 2019-03-02 01:55 | REPVR ---
PROCEDURE INFORMATION: Exam: CT Abdomen and Pelvis With Contrast Exam date and time: 03/02/2019 12:37 AM Clinical history: 73 years old, female; Abdominal pain; Localized; Left upper quadrant (luq) TECHNIQUE: Imaging protocol: Computed tomography of the abdomen and pelvis with intravenous contrast. Radiation optimization: All CT scans at this facility use at least one of these dose optimization techniques: automated exposure control; mA and/or kV adjustment per patient size (includes targeted exams where dose is matched to clinical indication); or iterative reconstruction. Contrast material: ISO; Contrast volume: 100 ml; Contrast route: AC; COMPARISON: No relevant prior studies available. FINDINGS: Lungs: Areas of scarring and atelectasis in bilateral lungs. Heart: Cardiomegaly. Liver: Liver is enlarged with mild diffuse fatty infiltration. Gallbladder and bile ducts: Status post cholecystectomy. No ductal dilatation. Pancreas: Normal. No ductal dilation. Spleen: Normal. No splenomegaly. Adrenals: Normal. No mass. Kidneys and ureters: Normal. No hydronephrosis. Stomach and bowel: Extensive diverticulosis of the colon. Thickening of the mid descending colon with mild surrounding inflammatory changes representing colitis/diverticulitis. No microperforation. No abscess formation. No bowel dilatation or obstruction. Appendix: Normal appendix. Intraperitoneal space: Unremarkable. No free air. No significant fluid collection. Vasculature: Unremarkable. No abdominal aortic aneurysm. Lymph nodes: Unremarkable. No enlarged lymph nodes. Bladder: Unremarkable as visualized. Reproductive: Tiny calcifications within the uterus likely degenerative fibroids. Bones/joints: Mild levoscoliosis of the lumbar spine with degenerative changes and diffuse demineralization of the bones. Soft tissues: Unremarkable. IMPRESSION: Extensive diverticulosis of the colon. Thickening of the mid descending colon with mild surrounding inflammatory changes representing colitis/diverticulitis. No microperforation. No abscess formation. No bowel dilatation or obstruction. Electronically signed by: Sarah Beth Henao On 03/02/2019 01:54:32 AM
[2019-03-02] MEDS ORDERED: CIPR-249 PO (03:26)
[2019-03-02] MEDS ORDERED: FLAG500T PO (03:27)
[2019-03-02] MEDS ORDERED: metroNIDAZOLE (FLAGYL) 500 MG TAB As Ordered ONE (03:30)
[2019-03-02] MEDS ORDERED: CIPROFLOXACIN 500 MG TAB As Ordered ONE (03:49)
== END 2019-03-02 03:52 | disposition home or self-care (01) ==
LOC: M ED 20:11
DX: K57.92 Diverticulitis of intestine, part unspecified, without perforation or abscess without bleeding (principal); N39.0 Urinary tract infection, site not specified; I10 Essential (primary) hypertension; I48.91 Unspecified atrial fibrillation; E78.5 Hyperlipidemia, unspecified; G47.30 Sleep apnea, unspecified; M19.90 Unspecified osteoarthritis, unspecified site; Z79.01 Long term (current) use of anticoagulants; Z79.899 Other long term (current) drug therapy; Z87.19 Personal history of other diseases of the digestive system; Z98.890 Other specified postprocedural states
CPT/HCPCS: 74177; 80048; 80076; 81001; 83690; 85025; 87088; 87186; 99281; Q9963; Q9967

== ENCOUNTER → 2019-04-13 | Outpatient (CLI) | payer MEDICARE, BC ==
[~2019-04-13] MED LIST changes: +CIPR-249 PO; +FLAG500T PO; +LOSA25TA14; +OXYB10TA2
[2019-04-13 13:54] LABS: BASO # 0.1 10^3/uL (0.0-0.2); BASO % 0.7 % (0.0-1.0); EOS # 0.2 10^3/uL (0.0-0.5); EOS % 2.6 % (0.0-3.0); HEMATOCRIT 46.4 % (36.0-47.0); HEMOGLOBIN 14.7 g/dl (12.0-15.5); LYMPH # 1.3 10^3/uL (1.5-5.0); LYMPH % 16.8 % (24.0-44.0); MEAN CORPUSCULAR HEMOGLOBIN 29.9 pg (27.0-33.0); MEAN CORPUSCULAR HGB CONC 31.7 g/dl (32.0-36.5); MEAN CORPUSCULAR VOLUME 94.3 fl (80.0-96.0); MONO # 0.5 10^3/uL (0.0-0.8); NEUTROPHILS # 5.7 10^3/uL (1.5-8.5); NEUTROPHILS % 73.5 % (36.0-66.0); PLATELET COUNT, AUTOMATED 278 10^3/uL (150-450); RED BLOOD COUNT 4.92 10^6/uL (4.00-5.40); WHITE BLOOD COUNT 7.7 10^3/uL (4.0-10.0)
[2019-04-13 14:10] LABS: ALBUMIN 3.8 GM/DL (3.2-5.2); BILIRUBIN,TOTAL 0.9 MG/DL (0.2-1.0); CALCIUM LEVEL 10.2 MG/DL (8.8-10.2); CHOLESTEROL RISK RATIO 2.977 (<5); CREATININE FOR GFR 1.04 MG/DL (0.55-1.30); GLOMERULAR FILTRATION RATE 55.6 (>39); POTASSIUM SERUM 5.2 MEQ/L (3.5-5.1); TOTAL PROTEIN 6.8 GM/DL (6.4-8.2)
[2019-04-13 14:33] LABS: HEMOGLOBIN A1c 5.4 %
== END ==
LOC: M SMT 09:24
PROVIDERS: ATTEND Family Medicine
DX: I10 Essential (primary) hypertension (principal); R73.01 Impaired fasting glucose

== ENCOUNTER → 2019-11-09 | Outpatient (CLI) | payer MEDICARE, BC ==
[~2019-11-09] MED LIST changes: -OXYB10TA2; +OXYB10TA23
[2019-11-09 15:36] LABS: HEMATOCRIT 46.6 % (36.0-47.0); HEMOGLOBIN 15.1 g/dl (12.0-15.5); MEAN CORPUSCULAR HEMOGLOBIN 30.1 pg (27.0-33.0); MEAN CORPUSCULAR HGB CONC 32.4 g/dl (32.0-36.5); PLATELET COUNT, AUTOMATED 249 10^3/uL (150-450); RED BLOOD COUNT 5.01 10^6/uL (4.00-5.40); WHITE BLOOD COUNT 6.2 10^3/uL (4.0-10.0)
[2019-11-09 16:07] LABS: CREATININE FOR GFR 1.07 MG/DL (0.55-1.30); GLOMERULAR FILTRATION RATE 53.7 (>39); MAGNESIUM LEVEL 2.4 MG/DL (1.8-2.4); POTASSIUM SERUM 4.6 MEQ/L (3.5-5.1); THYROID STIMULATING HORMONE 1.46 uIU/ML (0.358-3.740)
== END ==
LOC: M PLALAB 11:30
PROVIDERS: ATTEND Physician Assistant
DX: I48.0 Paroxysmal atrial fibrillation (principal)

== ENCOUNTER → 2020-04-05 | Outpatient (CLI) | payer MEDICARE, BC ==
[~2020-04-05] MED LIST changes: -ASPI81TA85 PO; +ASPI81TA86 PO
[2020-04-05 13:40] LABS: HEMOGLOBIN A1c 5.3 %
[2020-04-05 13:55] LABS: ALBUMIN 4.1 GM/DL (3.2-5.2); BILIRUBIN,TOTAL 1.1 MG/DL (0.2-1.0); CALCIUM LEVEL 11.3 MG/DL (8.8-10.2); CHOLESTEROL RISK RATIO 3.418 (<5); CREATININE FOR GFR 1.17 MG/DL (0.55-1.30); GLOMERULAR FILTRATION RATE 48.4 (>39); POTASSIUM SERUM 5.3 MEQ/L (3.5-5.1); TOTAL PROTEIN 7.3 GM/DL (6.4-8.2)
== END ==
LOC: M PLALAB 10:02
PROVIDERS: ATTEND Nurse Practitioner Family
DX: I10 Essential (primary) hypertension (principal); E78.2 Mixed hyperlipidemia; R73.01 Impaired fasting glucose

== ENCOUNTER → 2020-11-12 | Outpatient (CLI) | payer MEDICARE, BC ==
[2020-11-12 13:47] LABS: HEMATOCRIT 47.8 % (36.0-47.0); HEMOGLOBIN 15.2 g/dl (12.0-15.5); MEAN CORPUSCULAR HEMOGLOBIN 29.4 pg (27.0-33.0); MEAN CORPUSCULAR HGB CONC 31.8 g/dl (32.0-36.5); MEAN CORPUSCULAR VOLUME 92.5 fl (80.0-96.0); PLATELET COUNT, AUTOMATED 290 10^3/uL (150-450); RED BLOOD COUNT 5.17 10^6/uL (4.00-5.40)
[2020-11-12 14:17] LABS: CALCIUM LEVEL 10.5 MG/DL (8.8-10.2); CREATININE FOR GFR 1.11 MG/DL (0.55-1.30); GLOMERULAR FILTRATION RATE 51.3 (>39); MAGNESIUM LEVEL 2.6 MG/DL (1.8-2.4)
== END ==
LOC: M PLALAB 11:19
PROVIDERS: ATTEND Physician Assistant
DX: I48.0 Paroxysmal atrial fibrillation (principal); I11.9 Hypertensive heart disease without heart failure

== ENCOUNTER 2021-02-11 20:31 | Observation (INO) | payer MEDICARE, BC ==
[~2021-02-11] VITALS: Ht 162.6 cm; Wt 105.6 kg
[2021-02-11] MEDS ORDERED: ASPIRIN 81MG ENTERIC TABLET PO SCH (21:00)
[2021-02-11] MEDS ORDERED: LOSARTAN 25 MG TAB PO SCH (21:00)
[2021-02-11] MEDS ORDERED: SIMVASTATIN 40 MG TAB PO SCH (21:00)
[2021-02-11 21:20] LABS: BASO # 0.1 10^3/uL (0.0-0.2); BASO % 0.7 % (0.0-1.0); EOS # 0.2 10^3/uL (0.0-0.5); EOS % 2.6 % (0.0-3.0); HEMOGLOBIN 15.8 g/dl (12.0-15.5); LYMPH # 1.7 10^3/uL (1.5-5.0); LYMPH % 18.5 % (24.0-44.0); MEAN CORPUSCULAR HEMOGLOBIN 29.7 pg (27.0-33.0); MEAN CORPUSCULAR HGB CONC 32.9 g/dl (32.0-36.5); MEAN CORPUSCULAR VOLUME 90.2 fl (80.0-96.0); MONO # 0.5 10^3/uL (0.0-0.8); MONO % 5.8 % (2.0-8.0); NEUTROPHILS # 6.5 10^3/uL (1.5-8.5); NEUTROPHILS % 72.1 % (36.0-66.0); PLATELET COUNT, AUTOMATED 261 10^3/uL (150-450); RED BLOOD COUNT 5.32 10^6/uL (4.00-5.40)
[2021-02-11] MEDS: METOPROLOL 5 MG/5 ML VIAL IV SCH ×3 (21:24→21:56)
[2021-02-11 21:34] LABS: INR 1.23
[2021-02-11 21:35] LABS: PARTIAL THROMBOPLASTIN TIME 31.1 SECONDS (25.9-37.0)
--- NOTE | 2021-02-11 21:40 | REPVR ---
PROCEDURE INFORMATION: Exam: XR Chest Exam date and time: 02/11/2021 9:19 PM Age: 75 years old Clinical indication: Pain; Other: Not specified; Additional info: Chest pain TECHNIQUE: Imaging protocol: XR of the chest. Views: 1 view. COMPARISON: CR Chest, 2 view PA, Lat 02/14/2014 10:55 AM FINDINGS: Lungs: There are no interval infiltrates. Pleural spaces: Unremarkable. No pleural effusion. No pneumothorax. Heart/Mediastinum: The heart and mediastinum are unchanged. Bones/joints: Unremarkable. Soft tissues: There are moderately generous overlying soft tissues. IMPRESSION: Stable chest since 02/14/2014. No acute interval process is identified. Electronically signed by: Manas Hansen On 02/11/2021 21:40:17 PM
[2021-02-11 21:48] LABS: ERYTHROCYTE SEDIMENTATION RATE 5 mm/hr (0-30)
[2021-02-11 21:56] LABS: ALBUMIN 3.8 GM/DL (3.2-5.2); ALT/SGPT 30 U/L (12-78); BILIRUBIN,DIRECT 0.3 MG/DL (0.0-0.2); BLOOD UREA NITROGEN 20 MG/DL (7-18); C REACTIVE PROTEIN QUANTITATIV 0.46 MG/DL (0.00-0.30); CARBON DIOXIDE LEVEL 27 MEQ/L (21-32); CHLORIDE LEVEL 109 MEQ/L (98-107); CK-MB VALUE MASS 1.3 NG/ML (<3.6); CPK CREATINE PHOSPHOKINASE 41 U/L (26-192); CREATININE FOR GFR 1.08 MG/DL (0.55-1.30); GLOMERULAR FILTRATION RATE 52.9 (>39); GLUCOSE, FASTING 118 MG/DL (70-100); LIPASE 156 U/L (73-393); MAGNESIUM LEVEL 2.1 MG/DL (1.8-2.4); MB/CK RELATIVE INDEX 3.17 (< OR =4); NT-PRO BNP 353 PG/ML (<125); SODIUM LEVEL 140 MEQ/L (136-145); TOTAL PROTEIN 7.3 GM/DL (6.4-8.2); TROPONIN I < 0.02 NG/ML (< 0.10)
[2021-02-11] MEDS ORDERED: METOPROLOL TART 25 MG TABLET PO ONE (22:30)
[2021-02-11] MEDS ORDERED: DIGOXIN INJ 0.5 MG/2 ML AMP (J1160) IV ONE (23:10)
[2021-02-11] MEDS ORDERED: ACETAMINOPHEN TAB 650MG DOSE (2X325MG) PO PRN (23:10)
[2021-02-11] MEDS ORDERED: MOM 30ML SUSPENSION UDC PO PRN (23:10)
[2021-02-11] MEDS ORDERED: MAALOX 30 ML SUSP *UDC PO PRN (23:10)
--- NOTE | 2021-02-11 23:11 | HPEPDOC ---
[facility] Medical History & Physical Date of Admission Feb 11, 2021 Date of Service: Feb 11, 2021 Attending Physician: KARY MACIAS DO History and Physical CHIEF COMPLAINT: [75 y/o female c/o palpitations x4 hours] HISTORY OF PRESENT ILLNESS: [This is a 75 y/o female with a pmh of a fib on eliquis, luiz on cpap, htn and hld who reports to our ED on 02/11 with a cc of palpitations that began today around 1999. Patient states that she believes that she is in a-fib. Patient states that she can tell when she is in a-fib as she gets a "funny feeling" in her left chest into her neck and will check her pulse manually and on her smart watch. Patient tells me that she thinks that she has been having more episodes of a-fib lately and endorses one episode that lasted for approx 8 hours on friday 02/09. Patient is not entirely sure of any triggers for her palpitations, but states that she thinks her episode on 02/09 may be d/t coffee. Patient apparently told ED staff that she ate a marijuana edible earlier today before her palpitations. Patient also endorses decreased appetite and approx 10 pound weight loss over the past few weeks. Patient admits to some increased life stressors recently. Patient, at the time of my exam, denies any fevers, chills, dizziness, chest pain, syncope, paresthesias, feeling of impending doom, pedal edema, cough, sob. Cardiac monitoring and EKG in the ED confirmed a-fib with rapid ventricular response with highest rates in the 140s] PAST MEDICAL HISTORY: 1. [See HPI PAST SURGICAL HISTORY: 1. [Cataract removal]. 2. [Tonsillectomy]. 3. [Cholecystectomy 4. Unspec. left knee surgery 5. Unspec. right hand surgery 6. Unspec. back surgery x2]. SOCIAL HISTORY: Tobacco use:[denies] ETOH: [denies] Illicit drug use: [denies] FAMILY HISTORY: Reviewed - none pertinent ALLERGIES: Please see below. REVIEW OF SYSTEMS: CONSTITUTIONAL: [Denies fevers, chills]. HEENT: [Denies uri sx]. CARDIOVASCULAR: [See HPI]. RESPIRATORY: [Denies sob]. GASTROINTESTINAL: [Denies abd pain, n/v/d/c]. GENITOURINARY: [Denies dysuria]. SKIN: [Denies rash]. MUSCULOSKELETAL: [Denies acute joint/back pain]. NEUROLOGICAL: [Denies syncope, paresthesias]. PSYCHIATRIC: [Admits to recent increase in life stress]. ENDOCRINE: [Denies hx of DM]. HEMATOLOGIC/LYMPHATIC: [Denies hx of vte]. HOME MEDICATIONS: Please see below. PHYSICAL EXAMINATION: VITAL SIGNS: Please see below. GENERAL APPEARANCE: [This is a pleasant 75 y/o female who is alert and oriented to all questioning. She does not appear to be in any acute distress]. HEENT: [No mass or lesion. EOMI. No scleral icterus. Nares patent. Oral mucosa moist]. CARDIOVASCULAR: [Tachy rate, irregularly irregular rhythm. No murmurs, rubs, ga llops]. LUNGS: [Good air flow b/l. No wheezing, rales, rhonchi]. ABDOMEN: [Soft, nontender]. MUSCULOSKELETAL: [No joint deformity noted]. EXTREMITIES: [No pedal edema appreciated. Pulses intact. No overlying skin changes]. NEUROLOGICAL: [Speech clear. A+Ox3. No focal deficits]. PSYCHIATRIC: [Mood and affect appear appropriate.]. LABORATORY DATA: See below. IMAGING: [CXR: FINDINGS: Lungs: There are no interval infiltrates. Pleural spaces: Unremarkable. No pleural effusion. No pneumothorax. Heart/Mediastinum: The heart and mediastinum are unchanged. Bones/joints: Unremarkable. Soft tissues: There are moderately generous overlying soft tissues. IMPRESSION: Stable chest since 02/14/2014. No acute interval process is identified. ] MICROBIOLOGY: Please see below. ASSESSMENT: [This is a 75 y/o female with a pmh of a fib on eliquis, luiz on cpap, htn and hld who reports to our ED on 02/11 with a cc of palpitations that began today around 1999. Patient states that she believes that she is in a-fib. Cardiac monitoring and EKG in the ED confirmed a-fib with rapid ventricular response with highest rates in the 140s.]. . PLAN: 1. [A-fib with RVR - Unclear cause of rvr. Labs not indicative of infection or major electrolyte imbalance. No recent falls or illness. No fluid overload. - Day team can consider cardiology consultation. Patient follows Dr. Lieberman of [facility] outpatient - Patient received iv lopressor x3 and one dose of oral lopressor in the ED, ED provider reports iv lopressor causing sinus pauses - As of writing of this note, patient still tachycardic in the 120s - Will give one dose of IV digoxin and re-assess - Troponin negative in the ED, will trend - continue eliquis - continue carvedilol - Admit to pcu with tele under obs 2. HTN - continue losartan, spironolactone 3. HLD - continue simvastatin, asa 4. LUIZ - continue cpap nightly 5. Overactive bladder - continue oxybutynin DVT prophylaxis - pt on eliquis]. Vital Signs Vital Signs Date Time Temp Pulse Resp B/P (MAP) Pulse Ox O2 Delivery O2 Flow Rate FiO2 02/11/21 22:47 119 140/104 02/11/21 22:01 16 94 Room Air 02/11/21 20:31 97.2 Laboratory Data Labs 24H Laboratory Tests 2 02/11/21 21:03: Immature Granulocyte % (Auto) 0.3, Neutrophils (%) (Auto) 72.1H, Lymphocytes (%) (Auto) 18.5L, Monocytes (%) (Auto) 5.8, Eosinophils (%) (Auto) 2.6, Basophils (%) (Auto) 0.7, Neutrophils # (Auto) 6.5, Lymphocytes # (Auto) 1.7, Monocytes # (Auto) 0.5, Eosinophils # (Auto) 0.2, Basophils # (Auto) 0.1, Nucleated Red Blood Cells % (auto) 0.0, Erythrocyte Sedimentation Rate 5, Prothrombin Time 16.0H, Prothromb Time International Ratio 1.23, Activated Partial Thromboplast Time 31.1, Anion Gap 4L, Glomerular Filtration Rate 52.9, Calcium Level 11.0H, Magnesium Level 2.1, Total Bilirubin 1.0, Direct Bilirubin 0.3H, Aspartate Amino Transf (AST/SGOT) 18, Alanine Aminotransferase (ALT/SGPT) 30, Alkaline Phosphatase 74, Total Creatine Kinase 41, Creatine Kinase MB 1.3, Creatine Kinase MB Relative Index 3.17, Troponin I < 0.02, C-Reactive Protein, Quanti tative 0.46H, TY-Tnb-T-Type Natriuretic Peptide 353H, Total Protein 7.3, Albumin 3.8, Albumin/Globulin Ratio 1.1L, Lipase 156, Thyroid Stimulating Hormone (TSH) 1.630, Free Thyroxine 1.10 CBC/BMP Laboratory Tests 02/11/21 21:03 Home Medications Scheduled Apixaban (Eliquis) 5 Mg Tab, 5 MG PO BID Aspirin (Aspirin EC) 81 Mg Tablet.dr, 81 MG PO QHS Carvedilol (Carvedilol) 6.25 Mg Tablet, 6.25 MG PO BID Losartan Potassium (Losartan Potassium) 25 Mg Tablet, 25 MG PO QHS Mirabegron (Myrbetriq) 25 Mg Tab.er.24h, 25 MG PO DAILY Oxybutynin Chloride (Oxybutynin Chloride ER) 10 Mg Tab.er.24, 10 MG PO DAILY Simvastatin (Simvastatin) 40 Mg Tablet, 40 MG PO QHS Spironolactone (Spironolactone) 25 Mg Tab, 12.5 MG PO DAILY Allergies Coded Allergies: No Known Allergies (Unverified , 03/01/19) A-FIB/CHADSVASC A-FIB History Current/History of A-Fib/PAF?: Yes Current PO Anticoag Therapy: Yes MICHAEL CONDON Feb 11, 2021 23:11
[2021-02-11 23:57] LABS: RSV AMPLIFICATION NEGATIVE (NEGATIVE)
[2021-02-12 00:06] LABS: CK-MB VALUE MASS < 1.0 NG/ML (<3.6); CPK CREATINE PHOSPHOKINASE 34 U/L (26-192); MB/CK RELATIVE INDEX 2.94 (< OR =4); TROPONIN I < 0.02 NG/ML (< 0.10)
[2021-02-12 00:34] VITALS: BP 133/81
[2021-02-12] MEDS ORDERED: LOSA25TA14 PO (00:37)
[2021-02-12] MEDS ORDERED: MYRB25TA PO (00:37)
[2021-02-12] MEDS ORDERED: OXYB10TA23 PO (00:37)
[2021-02-12] MEDS ORDERED: ASPI-161 PO (00:37)
[2021-02-12] MEDS ORDERED: CARV6.25 PO (00:37)
[2021-02-12] MEDS ORDERED: SIMV40TA20 PO (00:37)
[2021-02-12] MEDS ORDERED: HOME MED LIST COMPLETE! XX SCH (00:40)
[2021-02-12] MEDS: APIXABAN 5 MG TAB (ELIQUIS) PO SCH ×2 (02:12→08:25)
[2021-02-12 04:00] VITALS: BP 112/72
[2021-02-12 05:40] LABS: HEMATOCRIT 44.6 % (36.0-47.0); HEMOGLOBIN 14.7 g/dl (12.0-15.5); MEAN CORPUSCULAR HEMOGLOBIN 29.6 pg (27.0-33.0); MEAN CORPUSCULAR VOLUME 89.7 fl (80.0-96.0); PLATELET COUNT, AUTOMATED 224 10^3/uL (150-450); RED BLOOD COUNT 4.97 10^6/uL (4.00-5.40); WHITE BLOOD COUNT 8.2 10^3/uL (4.0-10.0)
[2021-02-12 06:23] LABS: BLOOD UREA NITROGEN 19 MG/DL (7-18); CALCIUM LEVEL 10.4 MG/DL (8.8-10.2); CARBON DIOXIDE LEVEL 29 MEQ/L (21-32); CHLORIDE LEVEL 109 MEQ/L (98-107); CK-MB VALUE MASS 1.8 NG/ML (<3.6); CPK CREATINE PHOSPHOKINASE 28 U/L (26-192); CREATININE FOR GFR 0.94 MG/DL (0.55-1.30); GLOMERULAR FILTRATION RATE > 60.0 (>39); GLUCOSE, FASTING 90 MG/DL (70-100); MAGNESIUM LEVEL 2.2 MG/DL (1.8-2.4); MB/CK RELATIVE INDEX 6.43 (< OR =4); POTASSIUM SERUM 3.8 MEQ/L (3.5-5.1); SODIUM LEVEL 142 MEQ/L (136-145); TROPONIN I < 0.02 NG/ML (< 0.10)
[2021-02-12 08:00] VITALS: BP 130/78
[2021-02-12] MEDS ORDERED: CARV12.5 PO (08:00)
[2021-02-12 08:25] VITALS: BP 130/78
[2021-02-12] MEDS ORDERED: DOCUSATE SODIUM 100MG CAPSULE PO SCH (09:00)
[2021-02-12] MEDS ORDERED: oxyBUTYnin *DITROPAN XL* 5 MG TABCR PO SCH (09:00)
[2021-02-12] MEDS ORDERED: SPIRONOLACTONE 25 MG TAB PO SCH (09:00)
[2021-02-12] MEDS ORDERED: CARVedilol 6.25 MG TAB PO SCH (09:00)
[2021-02-12] MEDS ORDERED: CARVedilol 12.5 MG TAB PO SCH (09:00)
--- NOTE | 2021-02-12 11:21 | DS.PDOC ---
Discharge Summary General Date of Admission Feb 11, 2021 at 20:32 Date of Discharge 02/12/2021 Discharge Summary PROCEDURES PERFORMED DURING STAY: [None]. ADMITTING DIAGNOSES / DISCHARGE DIAGNOSES: A-fib with RVR HTN DLP ANUPAMA Overactive bladder DVT prophylaxis COMPLICATIONS/CHIEF COMPLAINT: Palpitations HISTORY OF PRESENT ILLNESS: Patient is a 75-year-old female with a PMHx of A.fib (on Eliquis), ANUPAMA on CPAP, HTN, DLP, who presented to the emergency room on 02/11 with complaints of palpitations. Patient was admitted to the hospital service for A. fib with RVR. Patient had reported that she had consumed alcohol and marijuana edible earlier in the day before she began experiencing palpitations. She was seen and examined at the bedside. Currently, she denies any chest pain, short of breath, palpitations, nausea, vomiting, abdominal pain, diarrhea, or urinary discomfort. HOSPITAL COURSE: A-fib with RVR - Currently patient denies any chest pain, shortness breath or palpitations - Patient's rate has become well controlled in the 60s to 70s - Troponin trend x 3 negative - Will adjust dose of Carvedilol to 12.5 BID - Patient has been advised to abstain from any use of alcohol or illicit substances - Continue with full anticoagulation with Eliquis - Will have outpatient follow-up with primary care provider, and cardiology within the next 7 days HTN - BP well controlled - c/w Losartan / Spironolactone DLP - c/w Atorvastatin and ASA ANUPAMA - c/w CPAP Overactive bladder - c/w oxybutynin DVT prophylaxis - c/w full anticoagulation with Eliquis DISCHARGE MEDICATIONS: Please see below. ALLERGIES: Please see below. PHYSICAL EXAMINATION ON DISCHARGE: Vitals (See below) General: Lying in bed, appears comfortable, AAOx3 HEENT: NC, AT CVS: +S1S2 Lungs: Fair air entry b/l, -w/r/r Abdomen: Soft, ND, NT Extremities: - Edema, - Calf tenderness LABORATORY DATA: Please see below. IMAGING: CXR 02/11: Stable chest since 02/14/2014. No acute interval process is identified. ACTIVITY: [As tolerated]. DISCHARGE PLAN: Follow up with PCP and Cardiology within 7 days Remain compliant with treatment plan and medications Return to the ER if you experience any problems DISPOSITION: Home, Self-Care. DISCHARGE CONDITION: [Stable]. TIME SPENT ON DISCHARGE: 35 minutes. Vital Signs/I&Os Vital Signs Date Time Temp Pulse Resp B/P (MAP) Pulse Ox O2 Delivery O2 Flow Rate FiO2 02/12/21 08:25 64 130/78 02/12/21 08:00 97.2 20 94 Room Air I&O- Last 24 Hours up to 6 AM 02/12/21 05:59 Intake Total 0 ml Balance 0 ml Laboratory Data Labs 24H Laboratory Tests 2 02/11/21 21:03: Immature Granulocyte % (Auto) 0.3, Neutrophils (%) (Auto) 72.1H, Lymphocytes (%) (Auto) 18.5L, Monocytes (%) (Auto) 5.8, Eosinophils (%) (Auto) 2.6, Basophils (%) (Auto) 0.7, Neutrophils # (Auto) 6.5, Lymphocytes # (Auto) 1.7, Monocytes # (Auto) 0.5, Eosinophils # (Auto) 0.2, Basophils # (Auto) 0.1, Nucleated Red Blood Cells % (auto) 0.0, Erythrocyte Sedimentation Rate 5, Prothrombin Time 16.0H, Prothromb Time International Ratio 1.23, Activated Partial Thromboplast Time 31.1, Anion Gap 4L, Glomerular Filtration Rate 52.9, Calcium Level 11.0H, Magnesium Level 2.1, Total Bilirubin 1.0, Direct Bilirubin 0.3H, Aspartate Amino Transf (AST/SGOT) 18, Alanine Aminotransferase (ALT/SGPT) 30, Alkaline Phosphatase 74, Total Creatine Kinase 41, Creatine Kinase MB 1.3, Creatine Kinase MB Relative Index 3.17, Troponin I < 0.02, C-Reactive Protein, Quantitative 0.46H, TY-Znh-E-Type Natriuretic Peptide 353H, Total Protein 7.3, Albumin 3.8, Albumin/Globulin Ratio 1.1L, Lipase 156, Thyroid Stimulating Hormone (TSH) 1.630, Free Thyroxine 1.10 02/11/21 23:07: Total Creatine Kinase 34, Creatine Kinase MB < 1.0, Creatine Kinase MB Relative Index 2.94, Troponin I < 0.02 02/11/21 23:08: Coronavirus (COVID-19)(PCR) NEGATIVE, Influenza Type A (RT-PCR) NEGATIVE, Influenza Type B (RT-PCR) NEGATIVE, Respiratory Syncytial Virus (PCR) NEGATIVE 02/12/21 05:13: Nucleated Red Blood Cells % (auto) 0.0, Anion Gap 4L, Glomerular Filtration Rate > 60.0, Calcium Level 10.4H, Magnesium Level 2.2, Total Creatine Kinase 28, Creatine Kinase MB 1.8, Creatine Kinase MB Relative Index 6.43H, Troponin I < 0.02 CBC/BMP Laboratory Tests 02/11/21 21:03 02/12/21 05:13 Discharge Medications Scheduled Apixaban (Eliquis) 5 Mg Tab, 5 MG PO BID, (Reported) Aspirin (Aspirin EC) 81 Mg Tablet.dr, 81 MG PO QHS, (Reported) Carvedilol (Carvedilol) 12.5 Mg Tablet, 12.5 MG PO BID Losartan Potassium (Losartan Potassium) 25 Mg Tablet, 25 MG PO QHS, (Reported) Mirabegron (Myrbetriq) 25 Mg Tab.er.24h, 25 MG PO DAILY, (Reported) Oxybutynin Chloride (Oxybutynin Chloride ER) 10 Mg Tab.er.24, 10 MG PO DAILY, (Reported) Simvastatin (Simvastatin) 40 Mg Tablet, 40 MG PO QHS, (Reported) Spironolactone (Spironolactone) 25 Mg Tab, 12.5 MG PO DAILY, (Reported) Allergies Coded Allergies: No Known Allergies (Unverified , 03/01/19) SEDA CAMPA MD Feb 12, 2021 11:21
--- NOTE | 2021-02-12 17:53 | ECGEPIP ---
[facility] - ED Test Date: 2021-02-11 Pat Name: NASIR ANDUJAR Department: Room: [place] [address] Gender: Female [employer] Education Teacher: MCKENNA : 1945 Requested By: KELVIN Moseley Order Number: [id number] Reading MD: Alexandra Cardenas Measurements Intervals [place] Rate: 107 P: CA: QRS: -13 QRSD: 86 T: 10 QT: 328 QTc: 437 Interpretive Statements Atrial fibrillation with rapid ventricular response Minimal voltage criteria for LVH, may be normal variant ( R in aVL ) NSTTW abnormalities No prior Electronically Signed on 02-12-2021 17:53:22 EDT by Alexandra Cardenas
== END 2021-02-12 10:42 | disposition home or self-care (01) ==
LOC: M ED 20:31 → M PCU 20:32 → ENRESERV 02-12 00:10 → M ED 02-12 00:27
PROVIDERS: ADMIT Internal Medicine; ATTEND Internal Medicine
DX: I48.0 Paroxysmal atrial fibrillation (principal); I10 Essential (primary) hypertension; E78.5 Hyperlipidemia, unspecified; G47.33 Obstructive sleep apnea (adult) (pediatric); N32.81 Overactive bladder; Z79.01 Long term (current) use of anticoagulants; Z79.82 Long term (current) use of aspirin; Z79.899 Other long term (current) drug therapy
CPT/HCPCS: 36415; 71045; 80048; 80076; 82550; 82553; 83690; 83735; 83880; 84439; 84443; 84484; 85025; 85027; 85610; 85652; 85730; 86140; 87631; 93005; 93041; 94760; 96374; 96376; 99285; G0378

== ENCOUNTER → 2021-03-28 | Outpatient (CLI) | payer MEDICARE, BC ==
[~2021-03-28] MED LIST changes: +ASPI-161 PO; +CARV12.5 PO; +CARV6.25 PO; +LOSA25TA14 PO; +MYRB25TA PO; +OXYB10TA23 PO; +SIMV40TA20 PO
[2021-03-28 17:50] LABS: CALCIUM LEVEL 9.6 MG/DL (8.8-10.2); CREATININE FOR GFR 1.22 MG/DL (0.55-1.30); POTASSIUM SERUM 5.3 MEQ/L (3.5-5.1)
== END ==
LOC: M PLALAB 14:52
PROVIDERS: ATTEND Internal Medicine Cardiovascular Disease
DX: I48.0 Paroxysmal atrial fibrillation (principal)

== ENCOUNTER → 2021-05-22 | Outpatient (CLI) | payer MEDICARE, BC ==
--- NOTE | 2021-05-22 15:03 | REPMRS ---
Patient History The patient states she had a clinical breast exam in May 2020 Patient is postmenopausal. Family history of pancreatic cancer at age 40 in son, colorectal cancer at age 80 in father, ovarian cancer at age 70 in maternal grandmother. Patient states no breast complaints today. Patient has signed MRS History Sheet. Digital Woman Screen Mammo: May 22, 2021 - Exam #: [id number] Bilateral CC and MLO view(s) were taken. Technologist: Lucille Holcomb, Technologist Prior study comparison: January 27, 2020, bilateral digital mammo screening bilat, performed at [facility]. January 25, 2019, bilateral digital mammo screening bilat, performed at [facility]. FINDINGS: There are scattered fibroglandular densities. Screening. Digital screening (2D) mammography was performed bilaterally in the CC and MLO projections. Additionally, breast tomosynthesis (3D mammography) was performed bilaterally in the CC and MLO projections. Todays exam was compared to the prior exam/exams. By history, the patient has no complaints of a palpable breast abnormality or other significant breast complaints. The breasts are unchanged in size and shape. There are no josé-soft tissue densities or spiculated masses. There is no internal architectural distortion. There are no suspicious josé-calcific clusters. Skin thickening or nipple retraction is not present. IMPRESSION: BI-RADS Category 2- Benign Findings. There is no evidence of malignant alteration of the breasts. Followup examination recommended in one year. The Volpara volumetric breast density category is B, there are scattered areas of fibroglandular densities. This mammogram was read with the assistance of [employer],an FDA approved computer aided detection system for mammography. The lifetime Tyrer-Cuzick score is 4.3 % Negative x-ray reports should not delay surgical consultation if a dominant or clinically suspicious mass is present. Not all breast cancers can be identified by mammography. Therefore, we recommend that you continue to perform regular breast self-examination and physical examination and then promptly contact your physician of any concerns or changes. Adenosis and dense breasts may obscure an underlying neoplasm. Assessment: BI-RADS/ACR category 2 mammogram. Benign Findings. Recommendation Routine screening mammogram of both breasts in 1 year. Electronically Signed By: Jeffy Romero DO 05/22/21 0545
== END ==
LOC: M WHC 08:09
PROVIDERS: ATTEND Family Medicine
DX: Z12.31 Encounter for screening mammogram for malignant neoplasm of breast (principal); Z78.0 Asymptomatic menopausal state

== ENCOUNTER → 2021-10-21 | Outpatient (CLI) | payer MEDICARE, BC ==
[~2021-10-21] MED LIST changes: +LOSA25TA13; +LOSA25TA13 PO; -LOSA25TA14; -LOSA25TA14 PO
[2021-10-21 13:58] LABS: BILIRUBIN,TOTAL 0.8 MG/DL (0.2-1.0); CALCIUM LEVEL 11.1 MG/DL (8.8-10.2); CREATININE FOR GFR 1.01 MG/DL (0.55-1.30); POTASSIUM SERUM 5.3 MEQ/L (3.5-5.1)
[2021-10-21 13:59] LABS: ALBUMIN 3.9 GM/DL (3.2-5.2); CHOLESTEROL RISK RATIO 3.145 (<5); TOTAL PROTEIN 7.3 GM/DL (6.4-8.2)
== END ==
LOC: M PLALAB 11:11
PROVIDERS: ATTEND Nurse Practitioner Family
DX: I10 Essential (primary) hypertension (principal)

== ENCOUNTER 2022-03-09 19:45 | Emergency (ER) | payer MEDICARE, BC ==
[~2022-03-09] VITALS: Ht 162.6 cm; Wt 99.1 kg
[2022-03-09 20:31] LABS: BASO # 0.1 10^3/uL (0.0-0.2); BASO % 0.6 % (0.0-1.0); EOS # 0.3 10^3/uL (0.0-0.5); HEMATOCRIT 43.6 % (36.0-47.0); HEMOGLOBIN 14.6 g/dl (12.0-15.5); LYMPH % 21.9 % (24.0-44.0); MEAN CORPUSCULAR HEMOGLOBIN 30.1 pg (27.0-33.0); MEAN CORPUSCULAR HGB CONC 33.5 g/dl (32.0-36.5); MEAN CORPUSCULAR VOLUME 89.9 fl (80.0-96.0); MONO # 0.6 10^3/uL (0.0-0.8); MONO % 6.6 % (2.0-8.0); NEUTROPHILS % 67.7 % (36.0-66.0); PLATELET COUNT, AUTOMATED 273 10^3/uL (150-450); RED BLOOD COUNT 4.85 10^6/uL (4.00-5.40); WHITE BLOOD COUNT 8.9 10^3/uL (4.0-10.0)
[2022-03-09] MEDS ORDERED: NITROGLYCERIN 0.4 MG SUBL TABLET SL PRN (20:35)
[2022-03-09] MEDS ORDERED: ASPIRIN 81 MG CHEW TABLET PO ONE (20:35)
[2022-03-09 20:44] LABS: INR 1.23; PROTHROMBIN TIME 15.9 SECONDS (12.7-14.5)
[2022-03-09 20:48] VITALS: BP 110/86
[2022-03-09 21:00] LABS: CK-MB VALUE MASS 1.7 NG/ML (<3.6); MB/CK RELATIVE INDEX 3.78 (< OR =4)
[2022-03-09 21:06] LABS: BILIRUBIN,DIRECT 0.2 MG/DL (0.0-0.2); BILIRUBIN,TOTAL 0.7 MG/DL (0.2-1.0); CALCIUM LEVEL 10.3 MG/DL (8.8-10.2); CREATININE FOR GFR 1.15 MG/DL (0.55-1.30); GLOMERULAR FILTRATION RATE 49.1 (>39); POTASSIUM SERUM 3.8 MEQ/L (3.5-5.1); TOTAL PROTEIN 7.2 GM/DL (6.4-8.2)
[2022-03-09 21:48] LABS: CK-MB VALUE MASS 1.2 NG/ML (<3.6); MB/CK RELATIVE INDEX 2.93 (< OR =4)
[2022-03-09] MEDS ORDERED: MORPHINE 2 MG/ML 1ML VIAL IV PRN (22:45)
[2022-03-09] MEDS ORDERED: ONDANSETRON 4MG 2ML VIAL IV ONE (22:45)
[2022-03-09] MEDS ORDERED: ISOVUE-370 76% 100ML VIAL As Ordered ONE (22:47)
[2022-03-10 01:17] VITALS: BP 108/68
== END 2022-03-10 01:19 | disposition home or self-care (01) ==
LOC: M ED 19:45
DX: R07.89 Other chest pain (principal); I48.91 Unspecified atrial fibrillation; I25.10 Atherosclerotic heart disease of native coronary artery without angina pectoris; I10 Essential (primary) hypertension; E78.5 Hyperlipidemia, unspecified; Z82.49 Family history of ischemic heart disease and other diseases of the circulatory system; K57.30 Diverticulosis of large intestine without perforation or abscess without bleeding; Z79.01 Long term (current) use of anticoagulants; Z79.82 Long term (current) use of aspirin; Z79.899 Other long term (current) drug therapy
CPT/HCPCS: 71045; 71275; 80048; 80076; 82550; 82553; 83690; 83880; 84484; 85025; 85610; 87486; 87581; 87633; 87798; 93005; 93041; 94760; 96374; 96375; 99285; J2270; J2405; Q9967

== ENCOUNTER → 2022-03-11 | Outpatient (CLI) | payer MEDICARE, BC ==
[2022-03-11 11:07] LABS: HEMATOCRIT 42.1 % (36.0-47.0); HEMOGLOBIN 13.7 g/dl (12.0-15.5); MEAN CORPUSCULAR HEMOGLOBIN 30.2 pg (27.0-33.0); MEAN CORPUSCULAR HGB CONC 32.5 g/dl (32.0-36.5); MEAN CORPUSCULAR VOLUME 92.7 fl (80.0-96.0); PLATELET COUNT, AUTOMATED 262 10^3/uL (150-450); RED BLOOD COUNT 4.54 10^6/uL (4.00-5.40); WHITE BLOOD COUNT 6.8 10^3/uL (4.0-10.0)
[2022-03-11 12:04] LABS: CREATININE FOR GFR 1.17 MG/DL (0.55-1.30); GLOMERULAR FILTRATION RATE 48.1 (>39); MAGNESIUM LEVEL 2.2 MG/DL (1.8-2.4); POTASSIUM SERUM 4.8 MEQ/L (3.5-5.1); THYROID STIMULATING HORMONE 0.977 uIU/ML (0.358-3.740)
== END ==
LOC: M PLALAB 08:35
PROVIDERS: ATTEND Physician Assistant
DX: I50.32 Chronic diastolic (congestive) heart failure (principal); I48.0 Paroxysmal atrial fibrillation

== ENCOUNTER → 2022-06-27 | Outpatient (CLI) | payer MEDICARE, BC | LOC: M WHC 09:42 | PROVIDERS: ATTEND Obstetrics & Gynecology | DX: Z12.31 Encounter for screening mammogram for malignant neoplasm of breast (principal); Z13.820 Encounter for screening for osteoporosis; M85.89 Other specified disorders of bone density and structure, multiple sites ==

== ENCOUNTER → 2022-06-27 | Outpatient (CLI) | payer MEDICARE, BC | LOC: M WHC 09:30 | PROVIDERS: ATTEND Obstetrics & Gynecology | DX: Z12.31 Encounter for screening mammogram for malignant neoplasm of breast (principal) ==

== ENCOUNTER → 2022-07-08 | Outpatient (CLI) | payer MEDICARE, BC | LOC: M PLAIMG 15:27 | PROVIDERS: ATTEND Physician Assistant | DX: M51.26 Other intervertebral disc displacement, lumbar region (principal); M48.56XA Collapsed vertebra, not elsewhere classified, lumbar region, initial encounter for fracture; M41.86 Other forms of scoliosis, lumbar region ==

== ENCOUNTER → 2022-07-16 | Outpatient (CLI) | payer MEDICARE, BC ==
[2022-07-16 14:12] LABS: BILIRUBIN,TOTAL 1.2 MG/DL (0.3-1.2); CALCIUM LEVEL 10.6 MG/DL (8.3-10.6); CHOLESTEROL RISK RATIO 3.04 (<5); CREATININE FOR GFR 1.09 MG/DL (0.55-1.30); GLOMERULAR FILTRATION RATE 52.1 (>39); HDL CHOLESTEROL 35.1 MG/DL (>40); LDL CHOLESTEROL 52.9 MG/DL (<100); POTASSIUM SERUM 4.2 MMOL/L (3.5-5.1); TOTAL PROTEIN 6.7 G/DL (5.7-8.2)
== END ==
LOC: M PLALAB 11:19
PROVIDERS: ATTEND Nurse Practitioner Family
DX: E78.2 Mixed hyperlipidemia (principal)

== ENCOUNTER → 2022-10-06 | Outpatient (CLI) | payer MEDICARE, BC ==
[2022-10-06 13:39] LABS: ALBUMIN 3.8 G/DL (3.2-5.2); CALCIUM LEVEL 9.9 MG/DL (8.3-10.6); CHOLESTEROL RISK RATIO 3.14 (<5); CREATININE FOR GFR 0.98 MG/DL (0.55-1.30); GLOMERULAR FILTRATION RATE 58.9 (>39); LDL CHOLESTEROL 73.6 MG/DL (<100); POTASSIUM SERUM 4.9 MMOL/L (3.5-5.1); TOTAL PROTEIN 6.7 G/DL (5.7-8.2)
== END ==
LOC: M PLALAB 10:26
PROVIDERS: ATTEND Nurse Practitioner Family
DX: E78.2 Mixed hyperlipidemia (principal)

== ENCOUNTER → 2023-06-18 | Outpatient (CLI) | payer MEDICARE, BC ==
[2023-06-18 15:45] LABS: BILIRUBIN,TOTAL 1.1 MG/DL (0.3-1.2); CALCIUM LEVEL 10.8 MG/DL (8.3-10.6); CREATININE FOR GFR 1.12 MG/DL (0.55-1.30); GLOMERULAR FILTRATION RATE 50.4 (>39); POTASSIUM SERUM 3.8 MMOL/L (3.5-5.1); TOTAL PROTEIN 6.7 G/DL (5.7-8.2)
[2023-06-18 15:47] LABS: TOTAL 25(OH) VITAMIN D 25.7 NG/ML (20.0-100.0)
== END ==
LOC: M PLALAB 12:58
PROVIDERS: ATTEND Nurse Practitioner Family
DX: I10 Essential (primary) hypertension (principal)

== ENCOUNTER → 2023-10-21 | Outpatient (CLI) | payer MEDICARE, BC ==
[~2023-10-21] MED LIST changes: -ASPI-161 PO; +ASPI-615 PO
[2023-10-21 15:22] LABS: BASO # 0.1 10^3/uL (0.0-0.2); BASO % 0.9 % (0.0-1.0); EOS # 0.2 10^3/uL (0.0-0.5); EOS % 2.9 % (0.0-3.0); HEMATOCRIT 39.9 % (36.0-47.0); HEMOGLOBIN 13.1 g/dl (12.0-15.5); LYMPH # 1.6 10^3/uL (1.5-5.0); MEAN CORPUSCULAR HEMOGLOBIN 31.3 pg (27.0-33.0); MEAN CORPUSCULAR HGB CONC 32.8 g/dl (32.0-36.5); MEAN CORPUSCULAR VOLUME 95.2 fl (80.0-96.0); MONO # 0.5 10^3/uL (0.0-0.8); MONO % 6.9 % (2.0-8.0); NEUTROPHILS # 4.6 10^3/uL (1.5-8.5); PLATELET COUNT, AUTOMATED 317 10^3/uL (150-450); RED BLOOD COUNT 4.19 10^6/uL (4.00-5.40); WHITE BLOOD COUNT 6.9 10^3/uL (4.0-10.0)
[2023-10-21 15:42] LABS: ALBUMIN 4.1 G/DL (3.2-5.2); BILIRUBIN,TOTAL 0.9 MG/DL (0.3-1.2); CHOLESTEROL RISK RATIO 3.24 (<5); CREATININE FOR GFR 1.06 MG/DL (0.55-1.30); GLOMERULAR FILTRATION RATE 53.7 (>39); HDL CHOLESTEROL 43.2 MG/DL (>40); LDL CHOLESTEROL 76.4 MG/DL (<100); NON-HDL-C 96.8 MG/DL; POTASSIUM SERUM 4.5 MMOL/L (3.5-5.1); TOTAL PROTEIN 6.9 G/DL (5.7-8.2)
== END ==
LOC: M PLALAB 12:50
PROVIDERS: ATTEND Nurse Practitioner Family
DX: I10 Essential (primary) hypertension (principal); E78.2 Mixed hyperlipidemia; I48.0 Paroxysmal atrial fibrillation

== ENCOUNTER → 2023-11-06 | Outpatient (CLI) | payer MEDICARE, BC | LOC: M WHC 13:03 | PROVIDERS: ATTEND Nurse Practitioner Family | DX: Z12.31 Encounter for screening mammogram for malignant neoplasm of breast (principal); R92.313 Mammographic fatty tissue density, bilateral breasts ==

== ENCOUNTER 2024-04-07 09:22 | Day surgery (SDC) | payer MEDICARE, BC ==
[~2024-04-07] VITALS: Ht 162.6 cm; Wt 98.1 kg
[~2024-04-07 09:22] MED LIST changes: +ALEN70TA82 PO; +CHLO125TA PO; +NS 250 ML IV ONE; +VITA200016 PO
[2024-04-07] MEDS ORDERED: LIDOCAINE 2% 100MG/5ML SDV (FOR ANES.) As Ordered ONE (09:45)
[2024-04-07] MEDS ORDERED: propofoL 200 MG/20 ML VIAL As Ordered ONE (09:45)
[2024-04-07] MEDS ORDERED: ePHEDrine SULFATE 25 MG/5 ML(5MG/ML) SYRINGE As Ordered ONE (10:20)
[2024-04-07 10:47] VITALS: BP 103/68; O2SAT 100
== END 2024-04-07 10:53 | disposition home or self-care (01) ==
LOC: M OPP 09:22
PROVIDERS: ATTEND Surgery
DX: Z12.11 Encounter for screening for malignant neoplasm of colon (principal); K63.5 Polyp of colon; K57.30 Diverticulosis of large intestine without perforation or abscess without bleeding; K64.2 Third degree hemorrhoids; Z87.19 Personal history of other diseases of the digestive system; Z80.0 Family history of malignant neoplasm of digestive organs; I48.91 Unspecified atrial fibrillation; I11.0 Hypertensive heart disease with heart failure; I50.9 Heart failure, unspecified; E78.00 Pure hypercholesterolemia, unspecified; I34.1 Nonrheumatic mitral (valve) prolapse; G47.30 Sleep apnea, unspecified; Z79.899 Other long term (current) drug therapy; Z79.01 Long term (current) use of anticoagulants; Z90.89 Acquired absence of other organs

== ENCOUNTER → 2024-04-19 | Outpatient (CLI) | payer MEDICARE, BC ==
[~2024-04-19] MED LIST changes: -NS 250 ML IV ONE
[2024-04-19 13:55] LABS: ALBUMIN 3.7 G/DL (3.2-5.2); BILIRUBIN,TOTAL 0.6 MG/DL (0.3-1.2); CALCIUM LEVEL 10.3 MG/DL (8.3-10.6); CREATININE FOR GFR 1.07 MG/DL (0.55-1.30); GLOMERULAR FILTRATION RATE 53.1 (>39); POTASSIUM SERUM 4.6 MMOL/L (3.5-5.1); TOTAL PROTEIN 7.2 G/DL (5.7-8.2)
[2024-04-19 13:56] LABS: TOTAL 25(OH) VITAMIN D 44.9 NG/ML (20.0-100.0)
== END ==
LOC: M PLALAB 11:17
PROVIDERS: ATTEND Nurse Practitioner Family
DX: M81.0 Age-related osteoporosis without current pathological fracture (principal); I10 Essential (primary) hypertension

== ENCOUNTER → 2024-10-24 | Outpatient (CLI) | payer MEDICARE, BC ==
[2024-10-24 14:15] LABS: BASO # 0.1 10^3/uL (0.0-0.2); BASO % 0.9 % (0.0-1.0); EOS # 0.3 10^3/uL (0.0-0.5); EOS % 3.5 % (0.0-3.0); HEMATOCRIT 40.8 % (36.0-47.0); HEMOGLOBIN 13.2 g/dl (12.0-15.5); LYMPH # 1.3 10^3/uL (1.5-5.0); LYMPH % 17.2 % (24.0-44.0); MEAN CORPUSCULAR HEMOGLOBIN 30.7 pg (27.0-33.0); MEAN CORPUSCULAR HGB CONC 32.4 g/dl (32.0-36.5); MEAN CORPUSCULAR VOLUME 94.9 fl (80.0-96.0); MONO # 0.5 10^3/uL (0.0-0.8); MONO % 6.3 % (2.0-8.0); NEUTROPHILS # 5.5 10^3/uL (1.5-8.5); NEUTROPHILS % 71.7 % (36.0-66.0); PLATELET COUNT, AUTOMATED 271 10^3/uL (150-450); WHITE BLOOD COUNT 7.6 10^3/uL (4.0-10.0)
[2024-10-24 14:44] LABS: ALBUMIN 3.8 G/DL (3.2-5.2); BILIRUBIN,TOTAL 0.7 MG/DL (0.3-1.2); CALCIUM LEVEL 10.2 MG/DL (8.3-10.6); CHOLESTEROL RISK RATIO 3.75 (<5); CREATININE FOR GFR 1.19 MG/DL (0.55-1.30); GLOMERULAR FILTRATION RATE 47.1 (>39); HDL CHOLESTEROL 39.9 MG/DL (>40); LDL CHOLESTEROL 84.7 MG/DL (<100); NON-HDL-C 110.1 MG/DL; POTASSIUM SERUM 4.6 MMOL/L (3.5-5.1); TOTAL PROTEIN 6.9 G/DL (5.7-8.2)
== END ==
LOC: M PLALAB 11:37
PROVIDERS: ATTEND Nurse Practitioner Family
DX: I10 Essential (primary) hypertension (principal); E78.2 Mixed hyperlipidemia